=== PATIENT | female | born 1955 | race Caucasian/White ===

== ENCOUNTER 2020-07-12 16:55 | Emergency (ER) | payer OTHER, MEDICARE, SELFPAY ==
--- NOTE | ~2020-07-12 | US_ITS ---
EXAMINATION: US dialysis access duplex scan INDICATION: Left arm swelling after dialysis TECHNIQUE: Grayscale, color Doppler, and pulsed Doppler images left forearm are obtained. COMPARISON: None available FINDINGS: The dialysis fistula is patent. There is a 2.5 x 0.6 cm fluid collection lateral to the fis kristian which does not demonstrate internal blood flow. There is no definite continuity with the fistula . IMPRESSION: 1. Tiny fluid collection adjacent to the left arm fistula. Suspect small amount of edema or less like ly small hematoma given the acuity of symptoms. Reviewed, dictated and finalized at location A. IMPRESSION: 1. Tiny fluid collection adjacent to the left arm fistula. Suspect small amount of edema or less likely small hematoma given the acuity of symptoms.
[2020-07-12 16:52] VITALS: BP 155/61; PULSE 81; PULSE 82; RESP 12; TEMP 36.7; O2SAT 100
--- NOTE | 2020-07-12 17:10 | ED.GENADULT ---
HPI - General Adult General Chief complaint: Unspecified Stated complaint: left arm pain Time Seen by Provider: 07/12/20 17:10 History of Present Illness HPI narrative: Pain and edema in the left arm following dialysis today. She has a dialysis fistula in the left upper arm, which thye have been using for dialysis for the past several months. Today after dialysis she had severe pain and swelling of the left arm. She is very limited use of the arm due to previous stroke. I spoke with her cosmetics and toiletries salesperson. He says that this has been an ongoing issue. He believes that it is mostly dependent edema due to positioning and paralysis of the arm. He did recommend imaging to assess the shunt, and said that she should follow-up with a vascular surgeon for any ongoing issues. Related Data Allergies Allergy/AdvReac Type Severity Reaction Status Date / Time No Known Allergies Allergy Verified 07/12/20 17:06 Review of Systems Review of Systems: All systems reviewed & are unremarkable except as noted in HPI and below Constitutional: Constitutional: Reports no additional constitutional complaints Cardiovascular: Cardiovascular: Denies chest pain Respiratory: Respiratory: Denies dyspnea Gastrointestinal: Gastrointestinal: Reports no additional gastrointestinal complaints Genitourinary: Genitourinary: Reports no additional female genitourinary complaints Musculoskeletal: Musculoskeletal: Reports as per HPI Neurologic: Reports as per HPI [facility] Past Medical History Medical History (Updated 07/13/20 @ 11:21 by Erasmo Manriquez MD) ESRD on dialysis Type 2 diabetes mellitus with hyperglycemia Family History Family History (Updated 12/19/16 @ 09:15 by DOCTOR UNKNOWN) Other Cerebrovascular accident Depression Diabetes mellitus Family history of alcoholism Family history of glaucoma Family history of mental disorder Family history of obesity Hypertension Social History Social History Smoking status: Never smoker Alcohol intake: never Exam Const: General: cooperative, no acute distress and alert Nutritional Appearance: obese Orientation/consciousness: patient oriented x3 HENMT: Head: normal to inspection Neck: Neck: normal visual inspection Chest: Chest palpation & inspection: normal inspection of the chest Resp: Effort & Inspection: normal respiratory effort Auscultation: clear to auscultation bilaterally Cardio: Rate: regular rate Rhythm: regular rhythm Skin: General skin exam: normal color Rashes: no rashes Wounds: no wounds Neuro: General: patient oriented x3, CN's II-XI intact bilaterally and other (partial paralysis of the left side) Extrem: Other: moderate to severe edema of the LUE Course Vital Signs Vital signs: Vital Signs Temperature 36.7 C 07/12/20 16:52 Pulse Rate 82 07/12/20 16:52 Respiratory Rate 12 07/12/20 16:52 Blood Pressure 155/61 H 07/12/20 16:52 Pulse Oximetry 100 07/12/20 16:52 Temperature 36.7 C 07/12/20 16:52 Pulse Rate 77 07/12/20 20:30 Respiratory Rate 20 07/12/20 20:30 Blood Pressure 147/64 H 07/12/20 20:30 Pulse Oximetry 100 07/12/20 20:30 Medical Decision Making MDM Narrative Medical decision making narrative: Normal functional shunt on US. Small fluid collection with no evidence that it is contiguous with intravascular space. Differential Diagnosis Differential Diagnosis: Shunt stenosis, hematoma, dependent edema, other Medical Records Medical records reviewed: Yes I reviewed the external patient's medical records. Vital Signs Vital Signs: Vital Signs Temperature 36.7 C 07/12/20 16:52 Pulse Rate 82 07/12/20 16:52 Respiratory Rate 12 07/12/20 16:52 Blood Pressure 155/61 H 07/12/20 16:52 Pulse Oximetry 100 07/12/20 16:52 Temperature 36.7 C 07/12/20 16:52 Pulse Rate 77 07/12/20 20:30 Respiratory Rate 20 07/12/20 20:30 Blood Pressure 147/64 H 07/12/20 20:30 Pulse Oximetry 100
[2020-07-12] MEDS: MORPHINE SULFATE (*CRX) 2 MG/ML INJ IV PUSH (17:29)
--- NOTE | 2020-07-12 17:40 | PC.NURSE ---
Pt called per pt's request.
[2020-07-12 19:16] VITALS: BP 145/55; PULSE 80; RESP 14; O2SAT 100
--- NOTE | 2020-07-12 19:20 | PC.NURSE ---
Went to give discharge instructions to pt, asked pt to call spouse. Pt asked that RN stay in room during phone call and stated my doesn't believe anything I say. Explained transportation need to due to pt not qualifying for an ambulance and stated there is no way she will be able to get into my pickup truck and denied any other way of using another vehicle. abruptly hung up.
--- NOTE | 2020-07-12 20:08 | PC.NURSE ---
Report to Paris at [facility]-discharge instructions gone over. Paris reports that patient is a total assist to move/transfer-[facility] lift is utilized at their facility for her. Call now placed for EMS transport
[2020-07-12 20:30] VITALS: BP 147/64; PULSE 77; RESP 20; O2SAT 100
== END 2020-07-12 20:50 | disposition home or self-care (01) ==
PROVIDERS: Emergency Provider Emergency Medicine; PCP Internal Medicine
DX: R60.0 Localized edema (principal); E11.22 Type 2 diabetes mellitus with diabetic chronic kidney disease; N18.6 End stage renal disease; Z99.2 Dependence on renal dialysis; I69.334 Monoplegia of upper limb following cerebral infarction affecting left non-dominant side
CPT/HCPCS: 93990; 96374; 99284; J2270

== ENCOUNTER 2020-07-23 03:45 | Emergency (ER) | payer OTHER, MEDICARE, SELFPAY ==
--- NOTE | ~2020-07-23 | XR_ITS ---
EXAMINATION: XR chest 1V portable DATE: 07/23/2020 04:55 INDICATION: Weakness post stroke TECHNIQUE: frontal view of the chest was obtained. COMPARISON: None FINDINGS: Large-bore dual-lumen right internal jugular central venous catheter with distal tip high right atriu m. Small bandlike opacity medial right lung base consistent with discoid atelectasis. No pulmonary ed caden, pleural effusion or pneumothorax. The cardiomediastinal silhouette is normal. IMPRESSION: 1. Mild right basilar atelectasis. Reviewed, dictated and finalized at location A.
--- NOTE | ~2020-07-23 | CT_ITS ---
EXAMINATION: CT brain wo con DATE: 07/23/2020 04:03 INDICATION: Facial weakness TECHNIQUE: Computed tomography (CT) of the head was performed without intravenous contrast. Sagittal and coronal reconstructions were performed. The mA was adjusted according to patient size. Iterative reconstruction technique was employed. The dose-length product was 605.33 mGy-cm. COMPARISON: None FINDINGS: No acute intracranial hemorrhage, acute infarction or abnormal extra axial fluid collection. Multiple small regions of encephalomalacia in the right cerebral hemisphere predominantly in the periventricu lar white matter and parafalcine right frontal lobe in the anterior cerebral artery vascular distribu tion. Additional small old infarcts in the right thalamus and right lentiform nucleus as well as in t he insula and anterior right temporal lobe. Vascular stenting along the right middle cerebral artery. Symmetric prominence of the sulci and ventricles consistent with mild to moderate age-appropriate di ffuse cerebral volume loss. Incidentally noted cavum septum pellucidum et vergae. No mass/mass effect . Changes of bilateral intraocular lens replacement. The orbits, paranasal sinuses and mastoid air ce lls are normal. Intracranial calcified cerebral atherosclerosis is noted. IMPRESSION: 1. No acute intracranial process. 2. Multiple small old infarcts right-sided infarcts in the frontal and temporal lobes, insula, thalam us and lentiform nucleus with change of prior stenting along the right middle cerebral artery. Reviewed, dictated and finalized at location A. IMPRESSION: 1. No acute intracranial process. 2. Multiple small old infarcts right-sided infarcts in the frontal and temporal lobes, insula, thalamus and lentiform nucleus with change of prior stenting al juanpablo the right middle cerebral artery.
[2020-07-23 03:40] VITALS: BP 144/91; PULSE 79; RESP 18; O2SAT 100
--- NOTE | 2020-07-23 04:10 | ECG_ITS ---
Measurements Intervals [place] Rate: 79 P: 65 WI: 190 QRS: 240 QRSD: 181 T: 54 QT: 494 QTc: 568 Interpretive Statements SINUS RHYTHM RIGHT AXIS DEVIATION RIGHT BUNDLE BRANCH BLOCK BASELINE ARTIFACT- I, II, III, AVR, AVL, AVF, V1-V6 ABNORMAL ECG Electronically Signed On 07-23-2020 8:58:09 CDT by Dez Díaz D.O.
[2020-07-23] MEDS: SODIUM CHLORIDE 0.9% IV 500 ML 250 ML (04:29)
[2020-07-23 04:35] LABS: Basophils Percent Auto 0.2 % (0.2-1.2); Eosinophils Absolute Auto 0.2 K/mm3 (0-0.3); Eosinophils Percent Auto 2.8 % (0-4.4); Hematocrit 37.9 % (37.0-47.0); Hemoglobin 11.7 g/dL (12.0-15.0); Immature Granulocyte Absolute 0.04 K/mm3 (0.00-0.031); Immature Granulocyte Percent A 0.7 % (0-0.5); Lymphocytes Absolute Auto 1.17 K/mm3 (0.9-3.2); Mean Corpuscular HGB Conc 30.9 g/dl (32-36); Mean Corpuscular Hemoglobin 30.2 pg (26-34); Mean Corpuscular Volume 97.9 fl (80-100); Mean Platelet Volume 10.1 fl (7.4-10.4); Monocytes Absolute Auto 0.8 K/mm3 (0.1-0.6); Neutrophils Percent Auto 64.3 % (45.5-73.1); Platelet Count Result 191 k/mm3 (150-375); Red Blood Count 3.87 M/mm3 (4.2-5.4); Red Cell Distribution Width 16.5 % (11.5-14.5); White Blood Count 6.2 K/mm3 (4.5-10.0)
[2020-07-23 04:46] LABS: Lactic Acid Reflex 1.3 mmol/L (0.7-2.1)
[2020-07-23 04:47] LABS: Alanine Aminotransferase 12 U/L (4-35); Alkaline Phosphatase 115 U/L (38-126); Anion Gap 2 mmol/L (8-16); Aspartate Amino Transferase 29 U/L (14-36); Bilirubin,Total 0.5 mg/dL (0.2-1.3); Blood Urea Nitrogen 23 mg/dL (7-17); Calcium 8.2 mg/dL (8.4-10.2); Carbon Dioxide 36 mmol/L (22-30); Chloride 95 mmol/L (98-107); Estimated Glomerular Filt Rate 22; Glucose 175 mg/dL (65-105); Potassium 3.9 mmol/L (3.4-5.0); Sodium 133 mmol/L (137-145)
--- NOTE | 2020-07-23 04:50 | ED.GENADULT ---
HPI - General Adult General Chief complaint: Altered Mental Status Stated complaint: facial weakness Time Seen by Provider: 07/23/20 04:10 History of Present Illness HPI narrative: Patient is 65-year-old female who presents the emergency department with chief complaint of feeling strange. Patient reports that she has history of multiple strokes in the past with her most recent being in the last few weeks. Patient reports that she today felt kind of lightheaded although she had dialysis on Friday and felt as though they pulled too much fluid off over and still feels dehydrated. The patient states that she felt a little bit of a mild facial droop but that subsequently has improved at this time. Patient denies chest pain denies shortness of breath. Related Data Allergies Allergy/AdvReac Type Severity Reaction Status Date / Time No Known Allergies Allergy Verified 07/12/20 17:06 Review of Systems Review of Systems: Narrative: A 10 system review of systems was completed on the patient and is negative except for what is stated in the HPI. Nursing and ancillary documentation was reviewed. [facility] Past Medical History Medical History ESRD on dialysis Type 2 diabetes mellitus with hyperglycemia Family History Family History Other Cerebrovascular accident Depression Diabetes mellitus Family history of alcoholism Family history of glaucoma Family history of mental disorder Family history of obesity Hypertension Social History Social History Smoking status: Never smoker Alcohol intake: never Exam Narrative: Exam Narrative: GENERAL: Well-appearing, well-nourished, and in no acute distress. HEAD: Normocephalic, atraumatic. EYES: PERRLA and EOMI. ENT: Nares clear, no rhinorrhea or epistaxis. Mucous membranes moist. NECK: Supple. CHEST: Clear to auscultation. No respiratory distress. HEART: Regular rate and rhythm. No murmur heard. Normal peripheral pulses. ABDOMEN: Soft, nontender, nondistended, normal active bowel sounds. EXTREMITIES: Normal range of motion. No edema. SKIN: Warm, dry, no rash. NEURO: No focal deficits. Alert and oriented x3. PSYCH: Normal mood and affect. Course Course Emergency Course: Patient has a absolute contraindications to TPA due to recent CVA and also recent endovascular procedure for CVA Vital Signs Vital signs: Vital Signs Pulse Rate 79 07/23/20 03:40 Respiratory Rate 18 07/23/20 03:40 Blood Pressure 144/91 H 07/23/20 03:40 Pulse Oximetry 100 07/23/20 03:40 Pulse Rate 73 07/23/20 07:20 Respiratory Rate 13 07/23/20 07:20 Blood Pressure 112/51 L 07/23/20 07:20 Pulse Oximetry 100 07/23/20 07:20 Medical Decision Making Vital Signs Vital Signs: Vital Signs Pulse Rate 79 07/23/20 03:40 Respiratory Rate 18 07/23/20 03:40 Blood Pressure 144/91 H 07/23/20 03:40 Pulse Oximetry 100 07/23/20 03:40 Pulse Rate 73 07/23/20 07:20 Respiratory Rate 13 07/23/20 07:20 Blood Pressure 112/51 L 07/23/20 07:20 Pulse Oximetry 100 07/23/20 07:20 Lab Data Result diagrams: 07/23/20 04:25 07/23/20 04:25 Labs: Lab Results 07/23/20 07/23/20 07/23/20 Range/Units 04:25 04:25 04:25 WBC 6.2 (4.5-10.0) K/mm3 RBC 3.87 L (4.2-5.4) M/mm3 Hgb 11.7 L (12.0-15.0) g/dL Hct 37.9 (37.0-47.0) % MCV 97.9 (80-100) fl MCH 30.2 (26-34) pg MCHC 30.9 L (32-36) g/dl RDW 16.5 H (11.5-14.5) % Plt Count 191 (150-375) k/mm3 MPV 10.1 (7.4-10.4) fl Immature Gran % (Auto) 0.7 H (0-0.5) % Neut % (Auto) 64.3 (45.5-73.1) % Lymph % (Auto) 19.0 (18.3-44.2) % [place] % (Auto) 13.0 H (2.6-8.5) % Eos % (Auto) 2.8 (0-4.4) % Baso % (Auto) 0.2 (0.2-1.2) % Lymph # (Auto)
[2020-07-23 05:11] LABS: Troponin I 0.033 ng/mL (0.000-0.034)
[2020-07-23] MEDS: ONDANSETRON INJ 4 MG/2 ML VIAL IV PUSH (05:46)
[2020-07-23 05:57] LABS: Add Urine Microscopic? YES; Appearance Urine Cloudy (Clear); Bacteria Urine Trace /hpf; Bilirubin Urine Negative (Negative); Blood Urine 1+ (Negative); Color Urine Yellow (Yellow); Glucose Urine UA 1+ mg/dL (Negative); Ketones Urine Negative (Negative); Leukocyte Esterase Ur 2+ LEU/UL (Negative); Mucus Urine Rare /lpf; Nitrate Urine Negative (Negative); Protein Urine 1+ mg/dL (Negative); Squamous Epithelial Cell Urine Occasional /hpf (Few); Urobilinogen Urine Negative mg/dL (<2.0); WBC Urine 16-20 /hpf
[2020-07-23] MEDS: ACETAMINOPHEN 500 MG TABLET 1000 MG PO (07:15)
[2020-07-23 07:20] VITALS: BP 112/51; PULSE 73; RESP 13; O2SAT 100
--- NOTE | 2020-07-23 07:25 | PC.NURSE ---
Report taken from Chery SCHROEDER, assumed care of pt at this time. Pt resting upright and alert on stretcher, VSS. EMS called for transport back to facility.
[2020-07-23 07:46] VITALS: BP 112/51; PULSE 72; RESP 24; O2SAT 100
== END 2020-07-23 07:57 | disposition home or self-care (01) ==
PROVIDERS: Emergency Provider Emergency Medicine; PCP Internal Medicine
DX: N39.0 Urinary tract infection, site not specified (principal); R53.1 Weakness; E11.22 Type 2 diabetes mellitus with diabetic chronic kidney disease; N18.6 End stage renal disease; Z99.2 Dependence on renal dialysis; Z86.73 Personal history of transient ischemic attack (TIA), and cerebral infarction without residual deficits
CPT/HCPCS: 36415; 70450; 71045; 80053; 81001; 83605; 84484; 85025; 87077; 87086; 87088; 87186; 93005; 96361; 96374; 99284; A9270; J2405; J7040

== ENCOUNTER 2021-01-22 19:47 | Emergency (ER) | payer OTHER, MEDICARE, SELFPAY ==
--- NOTE | ~2021-01-22 | XR_ITS ---
EXAMINATION: XR chest port-a-cath/central DATE: 01/23/2021 03:05 INDICATION: Central line placement. TECHNIQUE: A single frontal view of the chest was obtained. COMPARISON: Chest single view 07/23/2020 FINDINGS: The left lateral costophrenic angle is excluded. There is no pneumonia, pleural effusion, o r pneumothorax. The heart size is normal. A left internal jugular central venous catheter is seen wit h tip in the right atrium. There are surgical clips in right abdomen. IMPRESSION: 1. Central line tip in right atrium. Reviewed, dictated and finalized at location A.
[2021-01-22 19:52] VITALS: BP 146/51; PULSE 72; RESP 18; TEMP 36.2; O2SAT 99
[2021-01-22 22:08] VITALS: BP 122/48; PULSE 66; RESP 18; O2SAT 100
--- NOTE | 2021-01-22 22:22 | ED.GENADULT ---
HPI - General Adult General Chief complaint: Unspecified Stated complaint: BLEEDING FROM DIALYSIS FISTULA Time Seen by Provider: 01/22/21 21:50 Source: patient and RN notes reviewed History of Present Illness HPI narrative: Patient is a 65 y/o female sent from [place] for left arm AV shunt bleeding. She state that she had dialysis earlier today and bleeding has not stopped completely. She also has some pain to left arm. She has chronic left arm and leg weakness due to previous stroke. Related Data Allergies Allergy/AdvReac Type Severity Reaction Status Date / Time No Known Allergies Allergy Verified 07/12/20 17:06 Review of Systems Constitutional: Constitutional: Denies chills, Denies fever(s), Denies headache(s) and Denies weakness Eyes: Eyes: Denies blurry vision ENT: Denies headache(s) and Denies neck pain Cardiovascular: Cardiovascular: Denies chest pain and Denies dyspnea Respiratory: Respiratory: Denies cough and Denies dyspnea Gastrointestinal: Gastrointestinal: Denies abdominal pain, Denies diarrhea, Denies nausea and Denies vomiting Genitourinary: Genitourinary: Denies hematuria and Denies dysuria Musculoskeletal: Musculoskeletal: Denies back pain and Denies neck pain Integumentary/Breasts: Skin/Breast: Reports as per HPI and Reports other (bleeding from left arm) Neurologic: Denies headache(s), Reports focal weakness (left sided weakness) and Denies weakness PMFSH Past Medical History Medical History ESRD on dialysis Type 2 diabetes mellitus with hyperglycemia Family History Family History Other Cerebrovascular accident Depression Diabetes mellitus Family history of alcoholism Family history of glaucoma Family history of mental disorder Family history of obesity Hypertension Social History Social History Smoking status: Never smoker Alcohol intake: never Exam Const: General: no acute distress and well developed Orientation/consciousness: oriented to person, oriented to place, oriented to time and patient oriented x3 HENMT: Head: normocephalic Ears: external ears normal General nose exam: Normal external nose present Eyes: General: appearance normal, both eyes and all related structures Conjunctivae: conjunctivae normal Neck: Neck: normal visual inspection and full ROM Chest: Chest palpation & inspection: normal inspection of the chest and no tenderness Resp: Effort & Inspection: normal respiratory effort Auscultation: clear to auscultation bilaterally Cardio: Rate: regular rate Rhythm: regular rhythm GI: GI Palp: No abdominal tenderness and Yes Soft to palpation Skin: General skin exam: normal color, turgor normal and other (bleeding from left upper arm noted) Neuro: General: oriented to person, oriented to place, oriented to time and patient oriented x3 Cognition (Neuro): normal cognition Speech: normal speech Motor exam (neuro): Other motor observations present (left hemiparesis) Extrem: General: normal to inspection, no pedal edema and other (left arm contracted) Psych: Appearance: grossly normal Mental Status: mental status grossly normal Affect: normal affect Course Reevaluation(s) Reevaluation #1: Rechecked. Patient still has some bleeding from left arm Date: 01/23/21 Time: 00:30 Consultations Consultation #1: Discussed with Dr. Bobo (patient's manpower development specialist), who states that he or his partner will consult if patient is transferred to [facility] for admission. Date: 01/23/21 Time: 00:35 Consultation #2: Discussed with Dr. Brasher (vascular surgery) at [facility], who agrees to evaluated the patient in ED Date: 01/23/21 Time: 01:14 Consultation #3: Discussed with Dr. Jose (EDP) at [facility], who agrees to accept the patient for transfer. Date: 01/23/21 Time: 01:15 Vital Signs Vi
[2021-01-22 23:55] LABS: Basophils Percent Auto 0.1 % (0.2-1.2); Eosinophils Absolute Auto 0.5 K/mm3 (0-0.3); Eosinophils Percent Auto 6.5 % (0-4.4); Hematocrit 30.6 % (37.0-47.0); Hemoglobin 9.8 g/dL (12.0-15.0); Immature Granulocyte Absolute 0.04 K/mm3 (0.00-0.031); Immature Granulocyte Percent A 0.6 % (0-0.5); Lymphocytes Absolute Auto 1.47 K/mm3 (0.9-3.2); Lymphocytes Percent Auto 20.6 % (18.3-44.2); Mean Corpuscular Hemoglobin 31.1 pg (26-34); Mean Corpuscular Volume 97.1 fl (80-100); Mean Platelet Volume 9.3 fl (7.4-10.4); Monocytes Absolute Auto 0.6 K/mm3 (0.1-0.6); Monocytes Percent Auto 8.8 % (2.6-8.5); Neutrophils Absolute Auto 4.5 K/mm3 (1.3-6.7); Neutrophils Percent Auto 63.4 % (45.5-73.1); Platelet Count Result 232 k/mm3 (150-375); Red Blood Count 3.15 M/mm3 (4.2-5.4); Red Cell Distribution Width 14.2 % (11.5-14.5); White Blood Count 7.1 K/mm3 (4.5-10.0)
[2021-01-23 00:06] LABS: INR 1.7; Prothrombin Time 19.6 Seconds (11.1-14.7)
[2021-01-23 00:07] LABS: Partial Thromboplastin Time 37.5 SECONDS (22.3-36.8)
[2021-01-23 00:16] LABS: Anion Gap 6 mmol/L (8-16); Blood Urea Nitrogen 31 mg/dL (7-17); Calcium 8.4 mg/dL (8.4-10.2); Carbon Dioxide 29 mmol/L (22-30); Chloride 95 mmol/L (98-107); Estimated Glomerular Filt Rate 18; Glucose 129 mg/dL (65-110); Potassium 4.4 mmol/L (3.4-5.0); Sodium 130 mmol/L (137-145)
[2021-01-23 00:20] VITALS: BP 122/68; PULSE 78; RESP 18; O2SAT 99
[2021-01-23] MEDS: HYDROcodone/acetaminophen (*CRX) 5-325 MG TABLET 1 TAB PO (01:03)
[2021-01-23 02:59] VITALS: BP 126/78; PULSE 78; RESP 18; O2SAT 99
--- NOTE | 2021-01-23 04:03 | PC.NURSE ---
nurse to nurse report given to ALEXANDRE Soria at [facility]
[2021-01-23 04:10] LABS: EDCOVIDSCREEN Negative (Negative)
== END 2021-01-23 04:54 | disposition short-term general hospital (02) ==
PROVIDERS: Emergency Provider Emergency Medicine; PCP Internal Medicine
DX: T82.838A Hemorrhage due to vascular prosthetic devices, implants and grafts, initial encounter (principal); E11.22 Type 2 diabetes mellitus with diabetic chronic kidney disease; N18.6 End stage renal disease; Z99.2 Dependence on renal dialysis; Z20.822 Contact with and (suspected) exposure to COVID-19
CPT/HCPCS: 36415; 36556; 80048; 85025; 85610; 85730; 87426; 99285; A9270; C1751; C9803

== ENCOUNTER 2021-02-05 13:58 | Emergency (ER) | payer OTHER, MEDICARE, SELFPAY ==
[2021-02-05] VITALS (41 sets, daily range): BP systolic 95–141; BP diastolic 36–73; PULSE 74–82; RESP 9–23; TEMP 36.6; O2SAT 93–100
--- NOTE | ~2021-02-05 | XR_ITS ---
EXAMINATION: XR hip BI 2V w AP pelvis DATE: 02/05/2021 16:14 INDICATION: Pain after fall TECHNIQUE: AP view of the pelvis and two views of each hip were obtained. COMPARISON: None. FINDINGS: Bone alignment is normal. There is no fracture. There is moderate osteoarthritis of the hip s. Calcified atherosclerosis is noted. An endovascular stent is noted in the right thigh. IMPRESSION: 1. No acute osseous abnormality. Reviewed, dictated and finalized at location B.
--- NOTE | ~2021-02-05 | CT_ITS ---
EXAMINATION: CT cervical spine wo con DATE: 02/05/2021 15:51 INDICATION: Head injury TECHNIQUE: Computed tomography (CT) of the cervical spine was performed without intravenous contrast. The dose-length product (DLP) was 464.36 mGy-cm. Automated exposure control and iterative reconstruc tion technique were employed. COMPARISON: None FINDINGS: There is no fracture, dislocation, or subluxation. The vertebral body heights are maintaine d. There is severe loss of intervertebral disc space height at C5-6 and moderate loss of disc space h eight at C4-5. The odontoid is intact. The prevertebral soft tissues are normal. There is mild multil evel facet and uncovertebral joint osteoarthritis. There is a 1.1 cm left supraclavicular lymph node. IMPRESSION: 1. Moderate cervical spondylosis without acute findings. 2. Enlarged left supraclavicular lymph node. Nonemergent workup is recommended. Reviewed, dictated and finalized at location B.
--- NOTE | ~2021-02-05 | CT_ITS ---
EXAMINATION: CT brain wo con INDICATION: Head injury COMPARISON: 07/23/2020 TECHNIQUE: Standard unenhanced head CT. The dose-length product (DLP) was 605.33 mGy-cm. The mA was a djusted according to patient size. Iterative reconstruction technique was employed. FINDINGS: There is no acute intraparenchymal hemorrhage. No evidence of mass lesion. No evidence of a cute infarction. Multiple right-sided infarcts are again noted. There is mild periventricular and sub cortical hypodensity probably related to small vessel ischemic disease. A stent is noted in the right middle cerebral artery. There is mild prominence of the sulci and ventricles related to cerebral atr ophy. Intracranial calcified cerebral atherosclerosis is noted. There are no extra-axial collections. There is no mass effect or midline shift. Changes in the globes are likely from ocular lens surgery. The visualized sinuses and mastoid air cells are well aerated. IMPRESSION: 1. Areas of prior infarction without acute intracranial abnormality. 2. Age related findings. Reviewed, dictated and finalized at location B.
--- NOTE | ~2021-02-05 | XR_ITS ---
XR hand RT min 3V DATE: 02/05/2021 18:08 INDICATION: Posterior laceration, second-fifth metacarpal region TECHNIQUE: 4 views COMPARISON: None FINDINGS: Diffuse osteopenia. There is a plate and screws along the distal radius. There is polyarticular osteoarthritis involving particularly the radiocarpal, first carpometacarpal, first metacarpophalangeal and multiple interphal angeal joints. No radiopaque foreign body is detected. IMPRESSION: Postoperative change of the distal radius Osteopenia Polyarticular osteoarthritis No fracture or dislocation Reviewed, dictated and finalized at location A.
--- NOTE | ~2021-02-05 | XR_ITS ---
EXAMINATION: XR shoulder RT min 2V INDICATION: Right shoulder pain TECHNIQUE: Three views of the right shoulder are submitted. COMPARISON: 07/23/2020 FINDINGS: Normal alignment. No fracture. There is moderate osteoarthritis of the acromioclavicular an d glenohumeral joints. Soft tissues are unremarkable. IMPRESSION: 1. No acute osseous abnormality. Reviewed, dictated and finalized at location B.
--- NOTE | ~2021-02-05 | XR_ITS ---
EXAMINATION: XR shoulder LT min 2V INDICATION: Left shoulder pain TECHNIQUE: Two views of the left shoulder are submitted. COMPARISON: None FINDINGS: No definite fracture, dislocation, or subluxation is identified on this limited two view st udy. An endovascular stent is noted in the proximal left arm. IMPRESSION: 1. No definite acute osseous findings, limited examination. Reviewed, dictated and finalized at location B.
--- NOTE | 2021-02-05 15:00 | PC.NURSE ---
Pt very difficult IV/lab stick, unable to use LUE due to fistula. Typically requires US guided IV placement and lab draw. Attempted x1, no other vasculature visible.
--- NOTE | 2021-02-05 15:26 | ED.FALL ---
HPI - Fall General Chief Complaint: Fall Stated Complaint: fall, hit head Time Seen by Provider: 02/05/21 15:02 Source: patient and RN notes reviewed Mode of arrival: EMS Limitations: no limitations History of Present Illness HPI Narrative: This is a 65 year old female with history of CVA with left side deficits, ESRD on dialysis who presents for evaluation of head injury s/p fall. Patient states she just returned from dialysis . She was trying to get into bed when she fell backwards hitting her head. She is unsure of LOC, but she is complaining of a headache. She also reports right hand pain, left shoulder pain. She reports right shoulder pain but she is pointing to her left shoulder. She also reports right groin pain that has been present for several months due to surgery. She has wound to right hand that has been dressed. Patient takes Eliquis. Related Data Allergies Allergy/AdvReac Type Severity Reaction Status Date / Time No Known Allergies Allergy Verified 07/12/20 17:06 Review of Systems Review of Systems: All systems reviewed & are unremarkable except as noted in HPI and below Constitutional: Constitutional: Denies chills and Denies fever(s) Cardiovascular: Cardiovascular: Denies chest pain Respiratory: Respiratory: Denies cough and Denies dyspnea Gastrointestinal: Gastrointestinal: Denies abdominal pain, Denies nausea and Denies vomiting Musculoskeletal: Musculoskeletal: Denies back pain Neurologic: Reports headache(s) [facility] Past Medical History Medical History (Updated 02/05/21 @ 20:08 by Candi Godoy MD) ESRD on dialysis Type 2 diabetes mellitus with hyperglycemia Surgical History Surgical History (Updated 02/06/21 @ 00:22 by Candi Godoy MD) H/O: hysterectomy History of cholecystectomy Family History Family History Other Cerebrovascular accident Depression Diabetes mellitus Family history of alcoholism Family history of glaucoma Family history of mental disorder Family history of obesity Hypertension Social History Social History Smoking status: Never smoker Alcohol intake: never Exam Const: General: no acute distress and alert Orientation/consciousness: patient oriented x3 HENMT: Head: normocephalic and atraumatic Face and sinus: face symmetric Mouth: Yes Normal oral and palatal mucosa present, Yes lip normal, Yes oropharynx normal and Yes moist mucous membranes Throat: tonsils normal and uvula midline Eyes: EOM: EOMs intact bilaterally Neck: Other: ecchymosis to right neck. PAtient reports from CVL attempt Chest: Chest palpation & inspection: normal inspection of the chest Resp: Effort & Inspection: normal respiratory effort and no retractions Auscultation: clear to auscultation bilaterally Cardio: Rate: regular rate Rhythm: regular rhythm Heart sounds: no murmurs GI: GI Palp: Yes Soft to palpation, No Tenderness to palpation present (GI) and No Guarding due to palpation present (GI) Auscultation: normal bowel sounds Skin: Other: right shoulder ecchymosis, no hip and back ecchymosis; healed scar to left groin to thigh, no erythema or swelling, Neuro: General: patient oriented x3 Other: left arm contracture and left side paralysis Extrem: General: edema Psych: Mental Status: mental status grossly normal Affect: normal affect Course Reevaluation(s) Reevaluation #1: Patient has not been found to have acute fractures. She has chronic anemia . BP 135/45 (73). Patient will be discharged back to facility Date: 02/05/21 Time: 20:05 Vital Signs Vital signs: Vital Signs Temperature 97.8 F 02/05/21 14:02 Pulse Rate 82 02/05/21 14:02 Respiratory Rate 15 02/05/21 14:02 Blood Pressure 100/36 L 02/05/21 14:02 Pulse Oximetry 97 02/05/21 14:02 Temperature 97.8 F 02/05/21 14:02 Pulse
[2021-02-05] MEDS: MIDODRINE HCL 10 MG TABLET PO (16:13)
--- NOTE | 2021-02-05 16:20 | PC.NURSE ---
Tech unable to obtain labs. RN at bedside attempting IV placement via US.
--- NOTE | 2021-02-05 17:32 | PC.NURSE ---
First RN unable to obtain IV/labs with US. Second RN successful with ultrasound. Labs sent.
[2021-02-05 17:49] LABS: Basophils Percent Auto 0.3 % (0.2-1.2); Eosinophils Absolute Auto 0.4 K/mm3 (0-0.3); Eosinophils Percent Auto 2.3 % (0-4.4); Hematocrit 28.5 % (37.0-47.0); Immature Granulocyte Percent A 3.8 % (0-0.5); Lymphocytes Absolute Auto 1.46 K/mm3 (0.9-3.2); Lymphocytes Percent Auto 9.3 % (18.3-44.2); Mean Corpuscular HGB Conc 31.6 g/dl (32-36); Mean Corpuscular Volume 101.4 fl (80-100); Mean Platelet Volume 9.9 fl (7.4-10.4); Monocytes Percent Auto 6.1 % (2.6-8.5); Neutrophils Absolute Auto 12.3 K/mm3 (1.3-6.7); Neutrophils Percent Auto 78.2 % (45.5-73.1); Platelet Count Result 185 k/mm3 (150-375); Red Blood Count 2.81 M/mm3 (4.2-5.4); Red Cell Distribution Width 15.9 % (11.5-14.5); White Blood Count 15.7 K/mm3 (4.5-10.0)
[2021-02-05 17:54] LABS: INR 1.7; Partial Thromboplastin Time 40.1 SECONDS (22.3-36.8); Prothrombin Time 19.8 Seconds (11.1-14.7)
[2021-02-05 18:32] LABS: Alanine Aminotransferase 17 U/L (4-35); Alkaline Phosphatase 220 U/L (38-126); Anion Gap 5 mmol/L (8-16); Aspartate Amino Transferase 42 U/L (14-36); Bilirubin,Total 0.8 mg/dL (0.2-1.3); Blood Urea Nitrogen 26 mg/dL (7-17); Calcium 8.4 mg/dL (8.4-10.2); Carbon Dioxide 34 mmol/L (22-30); Chloride 93 mmol/L (98-107); Estimated Glomerular Filt Rate 24; Glucose 190 mg/dL (65-110); Potassium 4.4 mmol/L (3.4-5.0); Sodium 132 mmol/L (137-145)
[2021-02-05] MEDS: oxyCODONE HCL (*CRX) 5 MG TAB IR 10 MG PO (20:19)
--- NOTE | 2021-02-05 20:22 | PC.NURSE ---
Pt given pain medication, sandwich, and diet soda with MD approval. Pt A&Ox4, joking with staff, plan to discharge back to facility.
--- NOTE | 2021-02-05 21:05 | PC.NURSE ---
Pt offered the ordered zofran, denies need for it at this time. Repositioned in bed for comfort. Updated waiting ambulance for transfer back to facility.
--- NOTE | 2021-02-05 23:22 | PC.NURSE ---
@[phone] called [facility] to request transport. ETA [phone] @[phone] called [facility] for ETA update. ETA [phone]
--- NOTE | 2021-02-05 23:38 | PC.NURSE ---
@[phone] called [facility] to request transport. declined @[phone] called [facility] to request transport. dispatch is checking with the security site supervisor and will call back.
--- NOTE | 2021-02-06 00:48 | PC.NURSE ---
called [facility] to request transport. not available called [facility] for ETA update. ETA 20 minutes
--- NOTE | 2021-02-06 01:13 | PC.NURSE ---
[facility] here.
[2021-02-06 01:22] VITALS: PULSE 71; RESP 18
== END 2021-02-06 01:24 ==
PROVIDERS: Emergency Provider General Practice; PCP Internal Medicine
DX: S40.011A Contusion of right shoulder, initial encounter (principal); S61.401A Unspecified open wound of right hand, initial encounter; N18.6 End stage renal disease; Z99.2 Dependence on renal dialysis; E11.22 Type 2 diabetes mellitus with diabetic chronic kidney disease; I69.90 Unspecified sequelae of unspecified cerebrovascular disease; M47.812 Spondylosis without myelopathy or radiculopathy, cervical region; M85.841 Other specified disorders of bone density and structure, right hand; M19.041 Primary osteoarthritis, right hand; M18.9 Osteoarthritis of first carpometacarpal joint, unspecified
CPT/HCPCS: 36415; 70450; 72125; 73030; 73130; 73521; 80053; 85025; 85610; 85730; 96374; 99284; A9270; J0131

== ENCOUNTER 2021-02-16 10:16 | Emergency (ER) | payer OTHER, MEDICARE, SELFPAY ==
--- NOTE | ~2021-02-16 | XR_ITS ---
EXAMINATION: XR elbow LT min 3V DATE: 02/16/2021 11:39 INDICATION: Left elbow injury. TECHNIQUE: 3 views of left elbow were obtained. COMPARISON: None. FINDINGS: Bone alignment is normal. No fracture. There is mild elbow joint osteoarthritis. No elbow j oint effusion. IMPRESSION: 1. Mild elbow joint osteoarthritis. Reviewed, dictated and finalized at location A. DYE HAND
--- NOTE | ~2021-02-16 | CT_ITS ---
EXAMINATION:CT diagnostic chest wo con DATE: 02/16/2021 11:20 INDICATION: Chest injury. Chest pain. TECHNIQUE: Computed tomography (CT) of the chest was performed without intravenous contrast. Automate d exposure control and iterative reconstruction technique were employed. The dose-length product (DLP ) was 489.43 mGy-cm. COMPARISON: None. FINDINGS: The lungs demonstrate mild atelectasis. A calcified right middle lobe nodule is consistent with old granulomatous disease. There is smooth septal thickening in the lungs, consistent with mild pulmonary edema. There are small pleural effusions. Cardiomegaly is noted. There are coronary artery calcifications. No pericardial effusion. The central pulmonary arteries are enlarged, consistent with pulmonary arterial hypertension. There are changes of cholecystectomy. There is a 15 mm mass of fat in left kidney, consistent with an angiomyolipoma. There are fracture deformities of the anterior lef t third-fifth ribs. There is severe cervical spondylosis and mild thoracic spondylosis. Partially vis ualized is a chronic burst fracture of L1. IMPRESSION: 1. Age-indeterminant fracture deformities of the left third-fifth ribs. 2. Mild pulmonary edema. 3. Small pleural effusions. 4. Cardiomegaly. Reviewed, dictated and finalized at location A. AND DIE MAKER TECHNICIAN
--- NOTE | ~2021-02-16 | XR_ITS ---
EXAMINATION: XR humerus LT DATE: 02/16/2021 11:39 INDICATION: Left upper arm injury. TECHNIQUE: 2 views of left humerus on 4 radiograph were obtained. COMPARISON: Chest CT 02/16/2021 FINDINGS: Bone alignment is normal. No fracture. There is mild osteoarthritis of glenohumeral joint a nd acromioclavicular joint. There is a vascular stent in left axilla. IMPRESSION: 1. No fracture. Reviewed, dictated and finalized at location A. BLANKING PRESS ADJUSTER IMPRESSION: 1. No fracture.
[2021-02-16 10:20] VITALS: BP 138/58; PULSE 74; RESP 18; TEMP 37.1; O2SAT 100
--- NOTE | 2021-02-16 11:01 | ED.FALL ---
HPI - Fall General Chief Complaint: Fall Stated Complaint: hip pain Time Seen by Provider: 02/16/21 10:45 Source: patient and EMS Mode of arrival: EMS Limitations: no limitations History of Present Illness HPI Narrative: Patient had a fall 2 weeks ago, came to our emergency room with negative work-up. Patient is telling me that she still having pain at the left upper extremity, left hip and left ribs. [facility]. Patient denies any increase in the level of pain but is not getting better Related Data Allergies Allergy/AdvReac Type Severity Reaction Status Date / Time No Known Allergies Allergy Verified 07/12/20 17:06 Review of Systems Review of Systems: CONSTITUTIONAL: Denies fever, chills, or sweats. EYES: Denies visual changes, redness, or discharge. ENT: Denies rhinorrhea, congestion, sore throat, or otalgia. CARDIOVASCULAR: Denies chest pain, palpitations, or edema. RESPIRATORY: Denies cough or dyspnea. GASTROINTESTINAL: Denies abdominal pain, nausea, vomiting, or diarrhea. GENITOURINARY: Denies dysuria or hematuria. SKIN: Denies rash or itching. MUSCULOSKELETAL: Denies back pain, joint pain, or myalgia. NEUROLOGIC: Denies headache, numbness, or weakness. PSYCHIATRIC: Denies anxiety or depression. PMFSH Past Medical History Medical History ESRD on dialysis Type 2 diabetes mellitus with hyperglycemia Surgical History Surgical History H/O: hysterectomy History of cholecystectomy Family History Family History Other Cerebrovascular accident Depression Diabetes mellitus Family history of alcoholism Family history of glaucoma Family history of mental disorder Family history of obesity Hypertension Social History Social History Smoking status: Never smoker Alcohol intake: never Exam Narrative: General appearance: Well-developed, well-nourished, does not look in pain or distress Skin: Scattered bruises including right upper extremity left upper extremity, left forehead Head: Normocephalic, nontraumatic Eyes: Clear conjunctiva ENT: Oropharynx normal, ears normal, nose normal Neck: Supple, nontender Chest and respiratory: Airway patent, no respiratory distress, no accessory muscle use Heart: Regular rate/rhythm Abdomen: Soft, nontender, no organomegaly, quiet bowel sounds Vascular: Normal peripheral pulses, normal capillary refill. Musculoskeletal: Severe tenderness of the left arm, left elbow, left chest with palpation Neurologic: Alert and oriented ?3, left hemiplegia Course Course Emergency Course: Stable Vital Signs Vital signs: Vital Signs Temperature 37.1 C 02/16/21 10:20 Pulse Rate 74 02/16/21 10:20 Respiratory Rate 18 02/16/21 10:20 Blood Pressure 138/58 L 02/16/21 10:20 Pulse Oximetry 100 02/16/21 10:20 Temperature 37.1 C 02/16/21 10:20 Pulse Rate 74 02/16/21 10:20 Respiratory Rate 18 02/16/21 10:20 Blood Pressure 138/58 L 02/16/21 10:20 Pulse Oximetry 100 02/16/21 10:20 MDM - Fall MDM Narrative Medical decision making narrative: Contusion, bruises is my concern. X-ray left elbow, left humerus, CT chest to rule out rib fracture ordered. Differential Diagnosis Differential diagnosis: Likely other (Contusion, bruises, possible refracture) Imaging Data Radiologist's impression: Impressions Chest CT 02/16/21 11:25 IMPRESSION: 1. Age-indeterminant fracture deformities of the left third-fifth ribs. 2. Mild pulmonary edema
--- NOTE | 2021-02-16 11:29 | PC.NURSE ---
Pt off floor in radiology
[2021-02-16] MEDS: HYDROcodone/acetaminophen (*CRX) 7.5-325 MG TABLET 1 TAB PO (11:56)
--- NOTE | 2021-02-16 13:07 | PC.NURSE ---
Pt resides at [facility] in [place]
--- NOTE | 2021-02-16 13:25 | PC.NURSE ---
[facility] called - [phone]. Facility does not have transport. Will call [facility] for transport. Pt is wheelchair bound. Have Update to ALEXANDRE Oshea.
--- NOTE | 2021-02-16 13:35 | PC.NURSE ---
called patient's at request of patient. Left message requesting callback.
--- NOTE | 2021-02-16 13:59 | PC.NURSE ---
Spoke with ALEXANDRE Oshea, at facility. DON requesting radiology reports to be sent with patient.
[2021-02-16] MEDS: ACETAMINOPHEN 325 MG TABLET 650 MG PO (14:34)
[2021-02-16 14:45] VITALS: BP 143/46; PULSE 79; RESP 18; TEMP 36.7; O2SAT 100
== END 2021-02-16 14:50 ==
PROVIDERS: Emergency Provider Emergency Medicine; PCP Internal Medicine
DX: S40.022A Contusion of left upper arm, initial encounter (principal); S20.219A Contusion of unspecified front wall of thorax, initial encounter; S80.12XA Contusion of left lower leg, initial encounter; E11.22 Type 2 diabetes mellitus with diabetic chronic kidney disease; N18.6 End stage renal disease; Z99.2 Dependence on renal dialysis; W19.XXXA Unspecified fall, initial encounter
CPT/HCPCS: 71250; 73060; 73080; 99284; A9270

== ENCOUNTER 2021-03-19 03:44 | Observation (INO) | payer OTHER, MEDICARE, SELFPAY ==
[2021-03-19] VITALS (7 sets, daily range): BP systolic 128–165; BP diastolic 60–76; PULSE 68–86; RESP 15–33; TEMP 36.4; O2SAT 96–98
--- NOTE | ~2021-03-19 | XR_ITS ---
EXAMINATION: XR chest 1V DATE: 03/19/2021 05:02 INDICATION: Transient alteration of awareness TECHNIQUE: frontal view of the chest was obtained. COMPARISON: Chest radiograph dated 01/23/2021 FINDINGS: Right upper extremity peripherally inserted central venous catheter (PICC) tip at the caudal superio r vena cava. Lungs remain clear with no focal airspace opacities, pulmonary edema, pleural effusion or pneumothora x. The cardiomediastinal silhouette is normal. Cholecystectomy clips in the right upper quadrant. The re are bridging osteophytes at multiple levels in the spine, consistent with diffuse idiopathic skele nessa hyperostosis (DISH). IMPRESSION: 1. No acute cardiopulmonary disease. Reviewed, dictated and finalized at location A. RY ROCK DRILLING MACHINE OPERATOR
--- NOTE | ~2021-03-19 | CT_ITS ---
EXAMINATION: CT brain wo con DATE: 03/19/2021 05:01 INDICATION: Altered mental status. TECHNIQUE: Computed tomography (CT) of the head was performed without intravenous contrast. The mA wa s adjusted according to patient size. Iterative reconstruction technique was employed. The dose-lengt h product was 605.33 mGy-cm. COMPARISON: Head CT 02/05/2021 FINDINGS: There is chronic encephalomalacia involving the right frontal and parietal lobes, right ins ashley, right basal ganglia, and anterior right temporal lobe. There are scattered areas of low attenuat ion in the left-sided cerebral white matter, consistent with chronic small vessel ischemic disease. T here is no intracranial hemorrhage, acute infarction, or abnormal intracranial mass lesion. Cavum sep [place] pellucidum and vergae are noted. The ventricles are normal in size for the degree of brain volume loss. There are likely changes of ocular lens replacement surgeries. The mastoid air cells are alexis l. The paranasal sinuses are clear. There are stents in right middle cerebral artery. IMPRESSION: 1. Areas of chronic encephalomalacia in the brain on the right in the distribution of the right middl e cerebral artery. 2. Mild nonspecific cerebral white matter disease, which likely represents chronic small vessel ische tha disease. Reviewed, dictated and finalized at location A. M TESTER IMPRESSION: 1. Areas of chronic encephalomalacia in the brain on the right in the distribut ion of the right middle cerebral artery. 2. Mild nonspecific cerebral white matter disease, which likely represents network intelligence analyst cynthia small vessel ischemic disease.
--- NOTE | 2021-03-19 03:57 | ECG_ITS ---
Measurements Intervals [place] Rate: 80 P: 57 TX: 199 QRS: 261 QRSD: 177 T: 40 QT: 479 QTc: 553 Interpretive Statements SINUS RHYTHM RIGHT AXIS DEVIATION RIGHT BUNDLE BRANCH BLOCK INFERIOR INFARCT, AGE INDETERMINATE BASELINE ARTIFACT- V3-V6 ABNORMAL ECG Electronically Signed On 03-19-2021 6:06:05 HOME HEALTH CLINICIAN by Dez Díaz D.O.
--- NOTE | 2021-03-19 04:30 | ED.GENADULT ---
HPI - General Adult General Chief complaint: Altered Mental Status Stated complaint: DIFFICULTY BREATHING/LETHARGIC (2MG NARCAN) Time Seen by Provider: 03/19/21 04:11 History of Present Illness HPI narrative: Patient is a 66-year-old female presents emerged department with chief complaint of altered mental status. Patient has history of a CVA also receives chronic pain medications and is a [facility] a [facility] apparently the penitentiary staff woke her up this morning and noticed that she was what they thought to be somewhat confused or drowsier than normal the nurse reported that she was concerned that the patient kept receiving oral pain medications and told EMS that she probably needed some Narcan the patient received Narcan but was breathing on her own and not showing signs of respiratory distress. When asked what her complaint was the patient states I feel like shit Related Data Allergies Allergy/AdvReac Type Severity Reaction Status Date / Time No Known Allergies Allergy Verified 03/19/21 04:39 Review of Systems Review of Systems: A 10 system review of systems was completed on the patient and is negative except for what is stated in the HPI. Nursing and ancillary documentation was reviewed. [facility] Past Medical History Medical History ESRD on dialysis Type 2 diabetes mellitus with hyperglycemia Surgical History Surgical History H/O: hysterectomy History of cholecystectomy Family History Family History Other Cerebrovascular accident Depression Diabetes mellitus Family history of alcoholism Family history of glaucoma Family history of mental disorder Family history of obesity Hypertension Social History Social History Smoking status: Never smoker Alcohol intake: never Exam Narrative: GENERAL: Patient in no acute distress resting without difficulty breathing HEAD: Normocephalic, atraumatic. EYES: PERRLA and EOMI. ENT: Nares clear, no rhinorrhea or epistaxis. Mucous membranes moist. NECK: Supple. CHEST: Clear to auscultation. No respiratory distress. HEART: Regular rate and rhythm. No murmur heard. Normal peripheral pulses. ABDOMEN: Soft, nontender, nondistended, normal active bowel sounds. EXTREMITIES: Normal range of motion. No edema. SKIN: Warm, dry, no rash. NEURO: No focal deficits. Alert and oriented to baseline. PSYCH: Normal mood and affect. Course Course Emergency Course: Chest x-ray shows no acute abnormalities Vital Signs Vital signs: Vital Signs Temperature 36.4 C 03/19/21 03:48 Pulse Rate 76 03/19/21 03:48 Respiratory Rate 33 H 03/19/21 03:48 Blood Pressure 139/60 03/19/21 03:48 Pulse Oximetry 96 03/19/21 03:48 Temperature 36.4 C 03/19/21 03:48 Pulse Rate 76 03/19/21 03:48 Respiratory Rate 26 H 03/19/21 04:39 Blood Pressure 139/60 03/19/21 03:48 Pulse Oximetry 97 03/19/21 04:39 Medical Decision Making Vital Signs Vital Signs: Vital Signs Temperature 36.4 C 03/19/21 03:48 Pulse Rate 76 03/19/21 03:48 Respiratory Rate 33 H 03/19/21 03:48 Blood Pressure 139/60 03/19/21 03:48 Pulse Oximetry 96 03/19/21 03:48 Temperature 36.4 C 03/19/21 03:48 Pulse Rate 76 03/19/21 03:48 Respiratory Rate 26 H 03/19/21 04:39 Blood Pressure 139/60 03/19/21 03:48 Pulse Oximetry 97 03/19/21 04:39 Lab Data Result diagrams: 03/19/21 04:49 03/19/21 04:49 Labs: Lab Results 03/19/21 03/19/21 03/19/21 Range/Units 04:49 04:49 04:49 WBC 13.1 H (4.5-10.0) K/mm3 RBC 2.93 L (4.2-5.4) M/mm3 Hgb 8.6 L (12.0-15.0) g/dL Hct 28.3 L (37.0-47.0) % MCV 96.6 (80-100) fl MCH 29.4 (26-34) pg MCHC 30.4 L
--- NOTE | 2021-03-19 04:45 | PCRCNOTE ---
Pt being uncooperative. Unable to obtain ABG. Dr. Salazar aware. OK to cancel ABG for now.
[2021-03-19 05:12] LABS: Basophils Percent Auto 0.2 % (0.2-1.2); Eosinophils Absolute Auto 0.2 K/mm3 (0-0.3); Eosinophils Percent Auto 1.4 % (0-4.4); Hematocrit 28.3 % (37.0-47.0); Hemoglobin 8.6 g/dL (12.0-15.0); Immature Granulocyte Percent A 1.5 % (0-0.5); Lymphocytes Absolute Auto 0.86 K/mm3 (0.9-3.2); Lymphocytes Percent Auto 6.5 % (18.3-44.2); Mean Corpuscular HGB Conc 30.4 g/dl (32-36); Mean Corpuscular Hemoglobin 29.4 pg (26-34); Mean Corpuscular Volume 96.6 fl (80-100); Mean Platelet Volume 9.6 fl (7.4-10.4); Monocytes Absolute Auto 0.4 K/mm3 (0.1-0.6); Neutrophils Absolute Auto 11.5 K/mm3 (1.3-6.7); Neutrophils Percent Auto 87.4 % (45.5-73.1); Platelet Count Result 291 k/mm3 (150-375); Red Blood Count 2.93 M/mm3 (4.2-5.4); Red Cell Distribution Width 16.9 % (11.5-14.5); White Blood Count 13.1 K/mm3 (4.5-10.0)
[2021-03-19 05:22] LABS: INR 1.8; Prothrombin Time 20.5 Seconds (11.1-14.7)
[2021-03-19 05:23] LABS: Partial Thromboplastin Time 47.9 SECONDS (22.3-36.8)
[2021-03-19 05:26] LABS: Add Urine Microscopic? YES; Appearance Urine Cloudy (Clear); Bacteria Urine 3+ /hpf; Bilirubin Urine Negative (Negative); Blood Urine 3+ (Negative); Glucose Urine UA Negative (Negative); Ketones Urine Negative (Negative); Leukocyte Esterase Ur 3+ LEU/UL (Negative); Nitrate Urine Negative (Negative); Protein Urine 2+ mg/dL (Negative); RBC Urine >75 /hpf (0-2); Squamous Epithelial Cell Urine Moderate /hpf (Few); Urobilinogen Urine Negative mg/dL (<2.0); WBC Clumps Urine Present /HPF; WBC Urine >75 /hpf
[2021-03-19 05:27] LABS: Color Urine Amber (Yellow)
[2021-03-19 05:31] LABS: Lactic Acid Reflex 0.8 mmol/L (0.7-2.1)
[2021-03-19 05:49] LABS: Alanine Aminotransferase 12 U/L (4-35); Albumin Level 2.8 g/dL (3.5-5.1); Alkaline Phosphatase 121 U/L (38-126); Anion Gap 9 mmol/L (8-16); Aspartate Amino Transferase 42 U/L (14-36); Bilirubin,Total 0.6 mg/dL (0.2-1.3); Blood Urea Nitrogen 38 mg/dL (7-17); Calcium 7.9 mg/dL (8.4-10.2); Carbon Dioxide 24 mmol/L (22-30); Chloride 100 mmol/L (98-107); Estimated CRCL calculation 17 ml/min; Estimated Glomerular Filt Rate 14; Glucose 63 mg/dL (65-110); Potassium 4.3 mmol/L (3.4-5.0); Sodium 133 mmol/L (137-145)
[2021-03-19 05:54] LABS: Troponin I 0.024 ng/mL (0.000-0.034)
[2021-03-19] MEDS: SODIUM CHLORIDE 0.9% IV 1,000 ML 999 ML IV CONT (06:23)
[2021-03-19] MEDS: SODIUM CHLORIDE 0.9% IV 1,000 ML 125 ML IV CONT (09:35)
--- NOTE | 2021-03-19 10:46 | PC.NURSE ---
Unable to flush patient's PICC line. Placement of PICC line was verified with chest xray prior to this RNs arrival. Spoke to ALEXANDRE Bryant to assess PICC placement
--- NOTE | 2021-03-19 11:24 | PM.IMHP ---
H&P: HPI History of Present Illness Date/Time: 03/19/21 11:24 ED-HPI narrative: Patient is a 66-year-old female presents emerged department with chief complaint of altered mental status. Patient has history of a CVA also receives chronic pain medications and is a resident of a local long term apparently the long term staff woke her up this morning and noticed that she was what they thought to be somewhat confused or drowsier than normal the nurse reported that she was concerned that the patient kept receiving oral pain medications and told EMS that she probably needed some Narcan the patient received Narcan but was breathing on her own and not showing signs of respiratory distress. When asked what her complaint was the patient states I feel like shit Patient stats now feels much better, her last dialysis was on Friday and is scheduled to have one today, patient Scr and K is close to her baseline, will conitinue to monitor, her UA is suspicious for UTI and was given ceftriaxone, she is remains clinically stable. Patient admitted as an observation Chief Complaint: AMS Review of Systems Review of Systems: All systems reviewed & are unremarkable except as noted in HPI and below PMFSH Past Medical History Medical History (Updated 03/19/21 @ 12:28 by Gwendolyn Bernstein MD) ESRD on dialysis Type 2 diabetes mellitus with hyperglycemia Surgical History Surgical History H/O: hysterectomy History of cholecystectomy Family History Family History Other Cerebrovascular accident Depression Diabetes mellitus Family history of alcoholism Family history of glaucoma Family history of mental disorder Family history of obesity Hypertension Social History Social History Smoking status: Never smoker Alcohol intake: never Meds Home Medications and Allergies Home Medications Medication Instructions Recorded Confirmed Type hydrocodone-acetaminophen 1 tablet PO Q6H PRN #10 tablet 07/12/20 Rx cephalexin 500 mg PO Q8H 7 Days #21 cap 07/23/20 Rx Allergies Allergy/AdvReac Type Severity Reaction Status Date / Time No Known Allergies Allergy Verified 03/19/21 04:39 Vital Signs Vital Signs - 24 hr 03/19/21 03:48 03/19/21 04:39 03/19/21 06:24 Temperature 97.6 F Pulse Rate 76 68 Respiratory Rate 33 H 26 H 22 H Blood Pressure 139/60 140/62 Pulse Oximetry 96 97 97 03/19/21 07:18 03/19/21 09:06 03/19/21 10:37 Temperature Pulse Rate 86 85 82 Respiratory Rate 18 15 18 Blood Pressure 165/76 H 158/72 H 128/68 Pulse Oximetry 98 98 98 Exam Narrative: Morbidly obese Patient is comfortable, NAD HEENT: eyes are clear and none icteric LUNGS:CTA HEART: RR S1S2 ABD: distended Lower extremities: no edema SKIN: nonjaundiced Neuro: grossly intact. H&P: Results Labs Labs: Short CBC 03/19/21 Range/Units 04:49 WBC 13.1 H (4.5-10.0) K/mm3 Hgb 8.6 L (12.0-15.0) g/dL Hct 28.3 L (37.0-47.0) % Plt Count 291 D (150-375) k/mm3 BMP 03/19/21 04:49 Sodium 133 L Potassium 4.3 Chloride 100 Carbon Dioxide 24 BUN 38 H D Creatinine 3.20 H Glucose 63 L Calcium 7.9 L Cardiac Enzymes 03/19/21 Range/Units 04:49 Troponin I 0.024 (0.000-0.034) ng/mL Liver Function 03/19/21 Range/Units 04:49 Total Bilirubin 0.6 (0.2-1.3) mg/dL AST 42 H (14-36) U/L ALT 12 (4-35) U/L Alkaline Phosphatase 121 (38-126) U/L Albumin 2.8 L (3.5-5.1) g/dL Urine 03/19/21 Range/Units 04:49 Urine Color [place] (Yellow) Urine Appearance Cloudy H (Clear) Urine pH 6.0 (5.0-9.0) Ur Specific [place] 1.010 (1.001-1.035) Urine Protein 2+ H (Negative) mg/dL Urine Glucose (UA) Negative (Negative) mg/dL Assessment and Plan Assessment a
--- NOTE | 2021-03-19 11:28 | PM.DS ---
DS: Admitting Diagnosis Discharge Date 03/19/2021 Admitting Diagnosis AMS DS: Discharge Diagnosis Discharge Diagnosis (1) ESRD on dialysis: Code(s): N18.6 - End stage renal disease; Z99.2 - Dependence on renal dialysis Status: Acute Assessment and Plan: ED-HPI narrative: Patient is a 66-year-old female presents emerged department with chief complaint of altered mental status. Patient has history of a CVA also receives chronic pain medications and is a resident of a local fdc apparently the fdc staff woke her up this morning and noticed that she was what they thought to be somewhat confused or drowsier than normal the nurse reported that she was concerned that the patient kept receiving oral pain medications and told EMS that she probably needed some Narcan the patient received Narcan but was breathing on her own and not showing signs of respiratory distress. When asked what her complaint was the patient states I feel like shit Patient stats now feels much better, her last dialysis was on Friday and is scheduled to have one today, patient Scr and K is close to her baseline, will conitinue to monitor, her UA is suspicious for UTI and was given ceftriaxone, she is remains clinically stable. (2) Acute UTI: Code(s): N39.0 - Urinary tract infection, site not specified Status: Acute Assessment and Plan: patient was given ceftriaxone and patient is taking keflex will CPM DS: Summary Hospital Course Reason for hospitalization: ED-HPI narrative: Patient is a 66-year-old female presents emerged department with chief complaint of altered mental status. Patient has history of a CVA also receives chronic pain medications and is a resident of a local fdc apparently the fdc staff woke her up this morning and noticed that she was what they thought to be somewhat confused or drowsier than normal the nurse reported that she was concerned that the patient kept receiving oral pain medications and told EMS that she probably needed some Narcan the patient received Narcan but was breathing on her own and not showing signs of respiratory distress. When asked what her complaint was the patient states I feel like shit Patient stats now feels much better, her last dialysis was on Friday and is scheduled to have one today, patient Scr and K is close to her baseline, will conitinue to monitor, her UA is suspicious for UTI and was given ceftriaxone, she is remains clinically stable. Hospital Course: patient remains clinically stable, plan was to dialysis patient however her dialysis catheter is clogged and vascular nurse started to open it, also our Dialysis Center is not able available, dailysis nurse is not here today, will discharge the patient to outside facility for dialysis, patient remains clinically stable has no new complaints. Status at Discharge Functional status at discharge: uses cane/walker Overall status at discharge: patient is back to baseline Time Spent with Patient Time attestation: Total time spent providing and/or coordinating discharge services: Time spent: Greater than 30 minutes Exam Narrative: Morbidly obese Patient is comfortable, NAD HEENT: eyes are clear and none icteric LUNGS:CTA HEART: RR S1S2 ABD: distended Lower extremities: no edema SKIN: nonjaundiced Neuro: grossly intact. DS: Data Data Completed and Pending Labs on day of discharge: Labs from last 24 hours 03/19/21 03/19/21 03/19/21 04:49 04:49 04:49 WBC RBC Hgb Hct MCV MCH MCHC RDW Plt Count MPV Immature Gran % (Auto) Neut % (Auto) Lymph % (Auto) [place] % (Auto) Eos % (Auto) Baso % (Auto) Lymph # (Auto) [place] # (Auto) Eos # (Auto) Baso # (Auto) Abs Immat Gran (auto) Absolute Neuts (auto) Absolute Nucleated RBC Nucleated RBC % PT INR APTT Sodium 133 L Potassium 4.3 Chloride 100 Ca
[2021-03-19] MEDS: ALTEPLASE 2 MG VIAL (CATHFLO) IV PUSH (11:35)
--- NOTE | 2021-03-19 12:29 | PC.NURSE ---
Patient discharged from hospital. Patient is to receive dialysis today at [address] [facility] in [place]. Patient to be taken by ambulance to [facility] and back to nursing facility.
--- NOTE | 2021-03-19 12:42 | PC.NURSE ---
[facility] has arrived
--- NOTE | 2021-03-19 13:11 | PC.NURSE ---
PICC line flushed easily, good blood return following cathflo.
== END 2021-03-19 13:21 | disposition other institution (70) ==
LOC: ANHED 06:13 → ANH3MEDSUR 08:56
PROVIDERS: Admitting Provider Internal Medicine; Emergency Provider Emergency Medicine; PCP Internal Medicine; Visit Provider Internal Medicine
DX: N39.0 Urinary tract infection, site not specified (principal); N17.9 Acute kidney failure, unspecified; E11.22 Type 2 diabetes mellitus with diabetic chronic kidney disease; N18.6 End stage renal disease; R41.82 Altered mental status, unspecified; Z86.73 Personal history of transient ischemic attack (TIA), and cerebral infarction without residual deficits; Z99.2 Dependence on renal dialysis; E66.01 Morbid (severe) obesity due to excess calories; Z68.41 Body mass index [BMI] 40.0-44.9, adult; Z79.891 Long term (current) use of opiate analgesic
CPT/HCPCS: 36415; 70450; 71045; 80053; 81001; 83605; 84484; 85025; 85610; 85730; 87077; 87086; 87186; 93005; 96365; 99285; G0378; J0696; J2997; J7030

== ENCOUNTER 2021-06-12 15:38 | Observation (INO) | payer OTHER, MEDICARE, SELFPAY ==
[2021-06-12] VITALS (24 sets, daily range): BP systolic 59–125; BP diastolic 19–72; PULSE 68–73; RESP 11–21; TEMP 36.6–36.7; O2SAT 90–100; BMI 40.2
--- NOTE | ~2021-06-12 | XR_ITS ---
EXAMINATION: XR chest 1V portable EXAM DATE: 06/12/2021 16:05 INDICATION: Substernal chest pain. Dialysis. TECHNIQUE: Portable AP frontal chest x-ray was obtained. Comparison is made to prior examination from 03/19/2021. FINDINGS: There is cardiomegaly. No confluent consolidation, pneumothorax or pleural effusion suspect ed. There are bony degenerative changes. IMPRESSION: Cardiomegaly unchanged. Reviewed, dictated and finalized at location A. ECTION OFFICER IMPRESSION: Cardiomegaly unchanged.
--- NOTE | 2021-06-12 15:49 | ECG_ITS ---
Measurements Intervals [place] Rate: 68 P: 47 [place]: 191 QRS: 267 QRSD: 165 T: 50 QT: 479 QTc: 513 Interpretive Statements SINUS RHYTHM RIGHT AXIS DEVIATION [QRS AXIS > 100] RIGHT BUNDLE BRANCH BLOCK [120+ ms QRS DURATION, UPRIGHT V1, 40+ ms S IN I/aVL/V4/V5/V6] POSSIBLE ANTERIOR MYOCARDIAL INFARCTION , PROBABLY OLD [30 ms Q WAVE IN V3/V4, OR R < 0.2 mV IN V4] POSSIBLE INFERIOR MYOCARDIAL INFARCTION, AGE INDETERMINATE BASELINE ARTIFACT ABNORMAL ECG COMPARED TO ECG 03/19/2021 04:27:38 NO SIGNIFICANT CHANGES Electronically Signed On 06-12-2021 16:28:38 GLASS LAMINATING OPERATOR by Rome Keith M.D.
[2021-06-12 16:39] LABS: INR 1.8; Prothrombin Time 20.4 Seconds (11.1-14.7)
[2021-06-12 16:41] LABS: Alanine Aminotransferase 14 U/L (4-35); Albumin Level 2.2 g/dL (3.5-5.1); Alkaline Phosphatase 190 U/L (38-126); Anion Gap 0 mmol/L (8-16); Aspartate Amino Transferase 32 U/L (14-36); Bilirubin,Total 0.3 mg/dL (0.2-1.3); Blood Urea Nitrogen 19 mg/dL (7-17); Calcium 6.8 mg/dL (8.4-10.2); Carbon Dioxide 32 mmol/L (22-30); Chloride 98 mmol/L (98-107); Estimated Glomerular Filt Rate 32; Glucose 135 mg/dL (65-110); Lipase 15 U/L (23-300); Potassium 3.8 mmol/L (3.4-5.0); Sodium 130 mmol/L (137-145)
[2021-06-12 16:52] LABS: Troponin I 0.013 ng/mL (0.000-0.034)
[2021-06-12 16:59] LABS: Basophils Percent Auto 0.1 % (0.2-1.2); Eosinophils Absolute Auto 0.1 K/mm3 (0-0.3); Eosinophils Percent Auto 1.2 % (0-4.4); Hematocrit 29.1 % (37.0-47.0); Hemoglobin 8.2 g/dL (12.0-15.0); Immature Granulocyte Absolute 0.13 K/mm3 (0.00-0.031); Immature Granulocyte Percent A 1.1 % (0-0.5); Lymphocytes Absolute Auto 0.97 K/mm3 (0.9-3.2); Lymphocytes Percent Auto 8.3 % (18.3-44.2); Mean Corpuscular HGB Conc 28.2 g/dl (32-36); Mean Corpuscular Hemoglobin 25.9 pg (26-34); Mean Corpuscular Volume 91.8 fl (80-100); Mean Platelet Volume 9.1 fl (7.4-10.4); Monocytes Percent Auto 8.7 % (2.6-8.5); Neutrophils Absolute Auto 9.4 K/mm3 (1.3-6.7); Neutrophils Percent Auto 80.6 % (45.5-73.1); Platelet Count Result 269 k/mm3 (150-375); Red Blood Count 3.17 M/mm3 (4.2-5.4); Red Cell Distribution Width 19.2 % (11.5-14.5); White Blood Count 11.7 K/mm3 (4.5-10.0)
--- NOTE | 2021-06-12 17:02 | PC.NURSE ---
Dr. Loyola and Dr. Farias made aware of pt's low bp. Pt awaiting to be seen by erp.
[2021-06-12 17:11] LABS: Platelet Estimate Adequate (Adequate)
[2021-06-12 17:12] LABS: Anisocytosis 2+ (NORMAL); Hypochromasia 1+ (NORMAL)
--- NOTE | 2021-06-12 17:31 | ED.GENADULT ---
HPI - General Adult General Chief complaint: Chest Pain Stated complaint: substernal cp Time Seen by Provider: 06/12/21 17:01 Source: patient Mode of arrival: ambulatory Limitations: no limitations History of Present Illness HPI narrative: Patient is a 66-year-old female complain of chest pain, left chest, 7 out of 10, tightness, radiating to left upper extremity that started right after her dialysis. Patient states that her blood pressure is usually low right after dialysis. Patient denies any shortness of breath, abdominal pain, nausea, vomiting, diaphoresis, fever or chills. Patient is bedridden due to the severe stroke with left hemiparesis. Related Data Home Medications Medication Instructions Recorded Confirmed B [id number] acid-Zn tablet tablet PO 03/22/21 03/22/21 Saccharomyces boulardii 250 mg 250 mg PO BID 03/22/21 03/22/21 capsule acetaminophen 650 mg/20.3 mL oral 325 mg PO Q4H PRN 03/22/21 03/22/21 solution allopurinol 100 mg tablet 100 mg PO DAILY 03/22/21 03/22/21 alprazolam 0.25 mg tablet 0.25 mg PO BID 03/22/21 03/22/21 amiodarone 200 mg tablet 200 mg PO DAILY 03/22/21 03/22/21 apixaban 5 mg tablet 5 mg PO BID 03/22/21 03/22/21 ascorbic acid (vitamin C) 500 mg mg PO 03/22/21 03/22/21 capsule atorvastatin 40 mg tablet 40 mg PO DAILY 03/22/21 03/22/21 bimatoprost 0.03 % eye drops 1 drp EACH EYE DAILY 03/22/21 03/22/21 bisacodyl 10 mg rectal suppository 10 mg RECTAL DAILY PRN 03/22/21 03/22/21 bumetanide 1 mg tablet 1 mg PO BID 03/22/21 03/22/21 carvedilol 3.125 mg tablet 3.125 mg PO Q12H 03/22/21 03/22/21 clotrimazole 1 % topical cream 1 applic TOPICAL Q12H 03/22/21 03/22/21 gabapentin 100 mg capsule 100 mg PO QHS 03/22/21 03/22/21 insulin glargine 100 unit/mL (3 15 unit SUBCUT QAM 03/22/21 03/22/21 mL) subcutaneous pen insulin lispro 100 unit/mL 1 sliding scale dose SUBCUT 03/22/21 03/22/21 subcutaneous pen USEASDIRECTD magnesium citrate 150 ml PO ONCE 03/22/21 03/22/21 magnesium hydroxide 400 mg/5 mL 5 ml PO DAILY PRN 03/22/21 03/22/21 oral suspension midodrine 10 mg tablet 10 mg PO TID 03/22/21 03/22/21 mineral oil 118 ml RECTAL DAILY PRN 03/22/21 03/22/21 mirtazapine 7.5 mg tablet 7.5 mg PO QHS 03/22/21 03/22/21 oxycodone 10 mg tablet 10 mg PO Q4H PRN 03/22/21 03/22/21 pantoprazole 40 mg tablet,delayed 40 mg PO QAM 03/22/21 03/22/21 release senna-docusate sodium capsule cap PO 03/22/21 03/22/21 sodium chloride 0.9 % (flush) 10 ml IV DAILY 03/22/21 03/22/21 trazodone 50 mg tablet 25 mg PO QHS PRN 03/22/21 03/22/21 venlafaxine 150 mg 150 mg PO DAILY 03/22/21 03/22/21 capsule,extended release 24 hr Allergies Allergy/AdvReac Type Severity Reaction Status Date / Time No Known Allergies Allergy Verified 06/12/21 15:51 Review of Systems Review of Systems: All systems reviewed & are unremarkable except as noted in HPI and below Constitutional: Constitutional: Denies body ache(s), Denies chills, Denies excessive sweating, Denies fatigue, Denies fever(s), Denies headache(s), Denies lethargy, Denies malaise, Denies weakness and Denies weight loss Eyes: Eyes: Denies blurry vision, Denies change in vision and Denies loss of vision ENT: Denies dizziness, Denies ear discharge, Denies headache(s), Denies lip swelling, Denies epistaxis, Denies nasal congestion, Denies neck pain, Denies throat swelling and Denies tongue swelling Cardiovascular: Cardiovascular: Denies diaphoresis, Denies rapid heart rate, Denies edema, Denies irregular heart rhythm, Denies lightheadedness, Denies palpitations, Denies dyspnea and Denies dyspnea on exertion Respiratory: Respiratory: Denies chest congestion, Denies cough, Denies hemoptysis, Denies dyspnea and Denies dyspnea on exertion Gastrointestinal: Gastrointestinal: Denies abdominal pain, Denies melena, Denies hematochezia, Denies diarrhea, Denies nausea, Denies vomiting and Denies hematemesis Musculoskeletal: Musculoskeletal: Denies abnormal gait, Denies deformity
--- NOTE | 2021-06-12 17:42 | PC.NURSE ---
blood pressure taken manually due to low readings with cuff on leg. Taken bp on forearm and bp 127/55. MD made aware. Fluids held.
--- NOTE | 2021-06-12 17:51 | PC.NURSE ---
IV fluids held, due to dialysis. pt had 2.5 liter pulled today.
[2021-06-12] MEDS: HYDROcodone/acetaminophen (*CRX) 5-325 MG TABLET 1 TAB PO (18:11)
--- NOTE | 2021-06-12 19:27 | PC.NURSE ---
Assumed care of pt at this time. Pt alert and upright on stretcher. States pain in chest has resolved. Given meal tray. Pt updated on POC.
[2021-06-12 19:29] LABS: Troponin I 0.015 ng/mL (0.000-0.034)
--- NOTE | 2021-06-12 21:07 | ADMGEN ---
This patient, Chantel Suarez, was admitted to IMU Room 201-01 at approx 20:20 on 06/12. Patient/family oriented to hospital policies and general routines including ID bracelet, bed and alarms, visiting hours, pain management, procedures, bathroom and other care routines, personal items, smoking policy, room service/diet, and visiting hours. Information on how to activate the Rapid Response Team has been discussed. Patient/Family are encouraged to report perceived risks to care and to ask questions if they do not understand what they are told or what they should do.
[2021-06-12 21:55] LABS: Troponin I 0.015 ng/mL (0.000-0.034)
--- NOTE | 2021-06-12 22:43 | PM.IMHP ---
H&P: HPI History of Present Illness Date/Time: 06/12/21 22:43 Chief Complaint: Chest pain Narrative: 66-year-old female with past medical history of diabetes mellitus, hypertension, chronic pain and end-stage renal disease on hemodialysis who presented to the ER with substernal chest pain following dialysis. Source of information is patient report and past medical records. The patient reports that she started having substernal chest pain just after she finished dialysis. She typically has episodes of hypotension on dialysis days in receives midodrine prior to dialysis. She stated she had started to feel lightheaded disc prior to the onset of her chest pain. She did have a syncopal episode. Her chest pain lasted a few minutes and resolved without intervention. She reported that the pain is 7/10 in intensity in the ER and was tight in nature. She denied any associated shortness of breath, cough or congestion. The patient is a seemed to be a fair historian but states that early last stroke was 6 weeks ago when she was hospitalized here. However she was last hospitalized here in March and she is hospitalized at that time due to concern for confusion with narcotic use. Her last stroke was actually last summer and laughter with residual left-sided hemiparesis. She has a chronic indwelling Wilson catheter for what sounds like urinary retention. The patient does not appear to make that much urine. She reports that her catheter was changed about 3 weeks ago. She is alert and oriented x4 at the time of my evaluation. The patient did have multiple low blood pressure readings in the ER but blood pressure is improved when cuff adjusted in moved to the right forearm. Review of Systems Review of Systems: 12 systems were reviewed with pertinent positives and negatives per HPI. Except as documented in the HPI, all other systems were reviewed and are negative. FORMERLY [facility], [facility] Past Medical History Medical History (Updated 06/13/21 @ 03:24 by Leena Samano DO) Anxiety and depression Atrial fibrillation Chronic indwelling Wilson catheter Coronary artery disease CVA (cerebral vascular accident) 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 Complicated by post dialysis hypotension. Hemodialysis Friday Functional quadriplegia Due to CVA Glaucoma Gout Hyperlipidemia Insulin dependent diabetes mellitus Surgical History Surgical History (Updated 06/13/21 @ 03:14 by Leena Samano DO) AV fistula Left upper arm with recent dilation. H/O: hysterectomy History of cholecystectomy History of heart artery stent Family History Family History Other Cerebrovascular accident Depression Diabetes mellitus Family history of alcoholism Family history of glaucoma Family history of mental disorder Family history of obesity Hypertension Social History Social History (Updated 06/13/21 @ 03:18 by Leena Samano DO) Social History: [facility] She has been for over 30 years. She is a lifelong nonsmoker and does not drink alcohol. She is a retired respiratory therapist and retired in 2001. Code status: Full code Surrogate decision maker: Ramses () Smoking status: Never smoker Alcohol intake: never Substance use: never Gender identity (if verbalized by the patient): Female Spiritual care concerns: No Meds Home Medications and Allergies Home Medications Medication Instructions Recorded Confirmed Type hydrocodone-acetaminophen 1 tablet PO Q6H PRN #10 tablet 07/12/20 06/12/21 Rx cephalexin 500 mg PO Q8H 7 Days #21 cap 07/23/20 06/12/21 Rx acetaminophen 650 mg/20.3 mL oral 325 mg PO Q4H PRN 03/22/21 06/12/21 History solution allopurinol 1
[2021-06-13] VITALS (8 sets, daily range): BP systolic 112–129; BP diastolic 45–70; PULSE 65–74; RESP 20; TEMP 35.6–36.6; O2SAT 96–100; BMI 40.2
[2021-06-13] MEDS: oxyCODONE HCL (*CRX) 5 MG TAB IR 10 MG PO ×3 (07:50→18:07)
[2021-06-13 09:15] LABS: Glucose Point of Care 238 mg/dl (65-105)
[2021-06-13] MEDS: BUMETANIDE 1 MG TABLET PO ×2 (10:03→18:15)
[2021-06-13] MEDS: carvediloL 3.125 MG TABLET PO ×2 (10:03→20:25)
[2021-06-13] MEDS: AMIODARONE HCL 200 MG TABLET PO (10:04)
[2021-06-13] MEDS: PANTOPRAZOLE 40 MG TABLET PO (10:04)
[2021-06-13] MEDS: VENLAFAXINE HCL XR 75 MG CAP.ER.24H 150 MG PO (10:05)
[2021-06-13] MEDS: allopurinoL 100 MG TABLET PO (10:06)
[2021-06-13] MEDS: ATORVASTATIN 40 MG TABLET PO (10:07)
[2021-06-13] MEDS: INSULIN ASPART (*BKC) 100 UNITS/ML SUB-Q (10:11)
--- NOTE | 2021-06-13 11:19 | PCCCNOTE ---
On 06/13/21, the student, [Tanya Child], provided care and completed [employer] hospital documentation on this patient. I have reviewed the student's documentation and agree with the findings.
[2021-06-13] MEDS: APIXABAN 5 MG TABLET PO ×2 (12:03→20:25)
[2021-06-13] MEDS: SILVERGEL (ELTA) 45 ML 1 APPLIC TOPICAL (12:04)
[2021-06-13] MEDS: ALPRAZolam (*CRX) 0.25 MG TABLET PO ×2 (12:10→18:17)
[2021-06-13] MEDS: INSULIN GLARGINE (*BKC) 100 UNITS/ML 15 UNITS SUB-Q (12:11)
[2021-06-13 12:18] LABS: Glucose Point of Care 146 mg/dl (65-105)
--- NOTE | 2021-06-13 12:40 | WPDCN ---
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 this would benefit by surgical release. This would require intrinsic and long flexor release under general anesthesia. This is not emergent. Will ask wound center staff to try to provide absorptive tissue spacers if possible. We will need to address this problem surgically as an out patient. Pt dialysis T- Th- Sat. She requires a Celso lift and I will likely need to reevaluate her in the wound center in a week or so. HPI Data of Consult Date/Time: 06/13/21 12:40 Requesting Physician: Mara Millard MD Primary Care Provider: Surinder Mckeon, Consult Narrative Narrative: Chantel Suarez is a 66 year old female who is alert, pleasant and very informative. She has end-stage renal disease due to diabetes and dialyzes 3 times a week via an arterial venous fistula in the left arm. She was admitted with pain in the left chest and anterior shoulder area. She has a history of multiple strokes, the last being in the summer of 2020. She has left hemiplegia. I was consulted to see her about severe contractures of her left hand resulting in difficulties maintaining hygiene. 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 Chantel is able to extend her shoulder slightly. She says she can move her elbow with help. Her wrist and fingers do not move voluntarily. The wrist is in approximately 20? of extension and the metacarpophalangeal joints, proximal interphalangeal joints and the IP joints are all chronically flexed causing maceration in the palm particularly at the distal end of the ring finger. There is no cellulitis at this time. She complained a great deal of pain as I try to examine her fingers. She says the small finger is the most tender. The ring finger is the most buried into the palm. Efforts to maintain hygiene in the area have been helped by therapists. At the present time there is no absorptive material in her palm. Regarding the chest pain, she says the pain is in the anterior axilla area. I tried to palpate that area and she found it very uncomfortable. I did not feel any discrete masses, it seems the trapezium may be very tight. All movement of my hand in her axilla seemed to be very uncomfortable. She has no history of breast cancer or axillary surgery. She has no history of neck pain or stiffness that might be associated with radiculopathy. [facility] Past Medical History Medical History (Updated 06/13/21 @ 13:00 by Giovani Gould MD) Anxiety and depression Atrial fibrillation Chronic indwelling Wilson catheter Coronary artery disease CVA (cerebral vascular accident) 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 Complicated by post dialysis hypotension. Hemodialysis Friday Functional quadriplegia Due to CVA Glaucoma Gout Hyperlipidemia Insulin dependent diabetes mellitus Surgical History Surgical History (Updated 06/13/21 @ 03:14 by Leena Samano DO) AV fistula Left upper arm with recent dilation. H/O: hysterectomy History of cholecystectomy History of heart artery stent Family History Family History Other Cerebrovascular accident Depression Diabetes mellitus Family history of alcoholism Family history of glaucoma Family history of mental disorder Family history of obesity Hypertension Social History Social History (Updated 06/13/21 @ 03:18 by Leena Samano DO) Social History: Patient is leslie
--- NOTE | 2021-06-13 12:48 | PM.IMPN ---
Progress Note: A&P Assessment and Plan (1) Chest pain at rest: Code(s): R07.9 - Chest pain, unspecified Status: Acute (2) ESRD on dialysis: Code(s): N18.6 - End stage renal disease; Z99.2 - Dependence on renal dialysis Status: Acute (3) Syncope: Qualifiers: Syncope type: unspecified Qualified Code(s): R55 - Syncope and collapse Code(s): R55 - Syncope and collapse Status: Acute (4) Atrial fibrillation: Code(s): I48.91 - Unspecified atrial fibrillation Status: Inactive (5) Contracture, left hand: Code(s): M24.542 - Contracture, left hand Status: Acute (6) Left shoulder pain: Qualifiers: Chronicity: chronic Qualified Code(s): M25.512 - Pain in left shoulder; G89.29 - Other chronic pain Code(s): M25.512 - Pain in left shoulder Status: Chronic (7) Functional quadriplegia: Code(s): R53.2 - Functional quadriplegia Status: Inactive (8) Insulin dependent diabetes mellitus: Status: Inactive (9) DVT prophylaxis: Code(s): Z29.9 - Encounter for prophylactic measures, unspecified Status: Acute Additional Plan [place] the chest pain was related to demand ischemia from her low blood pressure. She had recent ischemic evaluation few months ago that was negative. Patient follow-up with her hcc coders for further evaluation per Cardiology. Will hold Bumex on dialysis days. PICC line in place. Unclear why this is still in place. She is not on IV antibiotics. She is unclear as well. Blood cultures have been collected per protocol but doubt that her low blood pressures from sepsis. Will remove PICC line. Will follow up on the blood culture results but okay for discharge. Plans for patient to follow-up Plastic surgery as an outpatient. Discussed with wound care. Okay for discharge at this time. Please see discharge care instructions. Subjective Date/time seen: 06/13/21 12:48 Interval history: 66yo female with ESRD, CAD and DM here for chest pain. Reji states she has low BP at dialysis at times and this is usually associated with chest pain. When asked why they sent her to the ED this time, she states it was due to the staff being 'scared'. She denies having any chest pain now. No nausea/vomiting. No fever or chills. No lightheadedness. SHe is up to a c chair and usally a Celso lift from the bed. She sees Dr Stahl, Cardiology with last stress test 3 months ago which was negative. She has chronic Wilson due to incontinence. She makes a small amount of urine but does not know when she has to void. She denies that she has a chronic Wilson for urine retention. Exam Narrative: AF 96.0 129/53 74 20 97% RA Gen - NARD sitting up in bed HEENT - lid lag noted. Chest - clear anteriorly. CV - RRR S1/S2. Tele showing no significant dysrhythmias Abd - soft, NT/ND, +BS - Wilson secured but no urine in the bag Ext - minimal pitting and nonpitting pedal edema. Thrill and bruit LUE. Neuro - Alert and appropriate. sleech is clear. thick left hemiplegia. Right UE/LE weakness. Inability to open left hand and causes pain. Psych - Nml mood and affect Skin - warm and dry. Left hand is not warm or erythematous. Objective Data Vital Signs Vital Signs: Vital Signs - 24 hr 06/12/21 15:44 06/12/21 15:52 06/12/21 15:53 Temperature 98.1 F Pulse Rate 71 73 69 Respiratory Rate 18 21 H 14 Blood Pressure 89/34 L 89/34 L Pulse Oximetry 99 100 100 06/12/21 15:54 06/12/21 16:00 06/12/21 16:02 Temperature Pulse Rate 69 69 69 Respiratory Rate 13 15 14 Blood Pressure 72/35 L Pulse Oximetry 99 100 97 06/12/21 16:15 06/12/21 16:17 06/12/21 16:41 Temperature Pulse Rate 69 68 69 Respiratory Rate 14 12 13 Blood Pressure 59/25 L Pulse Oximetry 99 100 98 06/12/21 16:50 06/12/21 17:08 06/12/21 17:13 Temperature Pulse Rate 72 71 Respiratory Rate 16 12 11 L Blood Pressure 61/26 L Pu
--- NOTE | 2021-06-13 15:10 | PM.DS ---
DS: Admitting Diagnosis Discharge Date 06/13/21 Admitting Diagnosis Chest pain DS: Discharge Diagnosis Discharge Diagnosis (1) Chest pain at rest: Code(s): R07.9 - Chest pain, unspecified Status: Acute (2) ESRD on dialysis: Code(s): N18.6 - End stage renal disease; Z99.2 - Dependence on renal dialysis Status: Acute (3) Syncope: Qualifiers: Syncope type: unspecified Qualified Code(s): R55 - Syncope and collapse Code(s): R55 - Syncope and collapse Status: Acute (4) Atrial fibrillation: Code(s): I48.91 - Unspecified atrial fibrillation Status: Inactive (5) Contracture, left hand: Code(s): M24.542 - Contracture, left hand Status: Acute (6) Left shoulder pain: Qualifiers: Chronicity: chronic Qualified Code(s): M25.512 - Pain in left shoulder; G89.29 - Other chronic pain Code(s): M25.512 - Pain in left shoulder Status: Chronic (7) Functional quadriplegia: Code(s): R53.2 - Functional quadriplegia Status: Inactive (8) Insulin dependent diabetes mellitus: Status: Inactive DS: Summary Hospital Course Reason for hospitalization: 66yo female with ESRD, CAD and DM here for chest pain. Please see H&P for details Hospital Course: Patient presents with complaints of left sided chest pain (10/14) described as tightness, radiating to left upper extremity that started right after her dialysis. Patient states that her blood pressure is usually low with dialysis and takes midodrine for this. She started to feel lightheaded just prior to the onset of her chest pain. The chest pain lasted few minutes and resolved its own. No shortness of breath. EMS was called and patient was brought to the emergency room for evaluation. In the emergency room, blood pressure was low at times but this improved when the cuff was adjusted and moved to the right forearm. She received aspirin, [place] and a 500 mL fluid bolus in the ED. CXR showed cardiomegaly which is unchanged but no other concerning findings. She does have right-sided PICC line in place. EKG showed normal sinus rhythm with right axis deviation, right bundle branch block, possibly old anterior ND. she also had findings for possible inferior ND but overall no change in EKG when compared to EKG from March 2021. White count slightly elevated at 11.7 K. She was anemic with a hemoglobin 8.2 but not significantly different from March. Sodium low at 130 but again no significant change. BUN 19 creatinine 1.6 but she is on dialysis. Troponin negative x3. LFTs within normal limits with exception of low protein and albumin. Calcium is low at 6.8 but corrected calcium was 8.2 given the low albumin of 2.2. Patient states that she follows with Dr. Stahl, cardiology. She states that she had a chemical stress test 3 months ago that was normal. Suspect patient had demand ischemic symptoms related to low blood pressure. Will hold Bumex on dialysis days. Blood cultures collected since she has a PICC line in place. PICC line removed. Patient was seen by wound care. Patient has multiple wounds mostly in the left side including left heel, left thigh, coccyx, left buttock. She also has severe flexion contraction of the left hand with fingers embedding into her palm. She was seen by Plastic surgery for this. The left hand was not felt to be infected but felt it needed to be cleaned better. Plan is for further evaluation as an outpatient which is being arranged through the wound care clinic. Discussed with the wound care nurse. Patient overall did well as a to be returned to the half-way on 06/13/2021. Status at Discharge Cognitive/behavioral status at discharge: Stable Time Spent with Patient Time attestation: Total time spent providing and/or coordinating discharge services: 38 minutes Time spent: Greater than 30 minutes Exam Narrative: AF 96.0 129/53 74 20 97% RA Gen
[2021-06-13 16:48] LABS: Glucose Point of Care 167 mg/dl (65-105)
[2021-06-13] MEDS: CENTRAL LINE FLUSH 10 ML IV PUSH ×2 (18:08→20:25)
[2021-06-13] MEDS: MIRTAZAPINE 7.5 MG TABLET PO (20:25)
[2021-06-13] MEDS: GABAPENTIN 100 MG CAPSULE PO (20:25)
--- NOTE | 2021-06-19 09:21 | PC.NURSE ---
Blood cx are negative. Dr. Meggan bhatia.
== END 2021-06-13 21:00 ==
LOC: ANHED 19:02 → ANHIMU 06-13 13:44
PROVIDERS: Emergency Medicine; Admitting Provider Hospitalist; Emergency Provider Emergency Medicine; PCP Internal Medicine; Visit Provider Internal Medicine
DX: R07.9 Chest pain, unspecified (principal); R55 Syncope and collapse; M24.542 Contracture, left hand; M25.512 Pain in left shoulder; I12.0 Hypertensive chronic kidney disease with stage 5 chronic kidney disease or end stage renal disease; E11.22 Type 2 diabetes mellitus with diabetic chronic kidney disease; N18.6 End stage renal disease; I69.354 Hemiplegia and hemiparesis following cerebral infarction affecting left non-dominant side; G89.29 Other chronic pain; Z99.2 Dependence on renal dialysis; I25.10 Atherosclerotic heart disease of native coronary artery without angina pectoris; E11.40 Type 2 diabetes mellitus with diabetic neuropathy, unspecified; E11.319 Type 2 diabetes mellitus with unspecified diabetic retinopathy without macular edema; M10.9 Gout, unspecified; E78.5 Hyperlipidemia, unspecified; H40.9 Unspecified glaucoma; F41.8 Other specified anxiety disorders; I48.91 Unspecified atrial fibrillation; Z79.4 Long term (current) use of insulin; Z79.01 Long term (current) use of anticoagulants; Z79.891 Long term (current) use of opiate analgesic; Z96.0 Presence of urogenital implants; Z95.5 Presence of coronary angioplasty implant and graft
CPT/HCPCS: 36415; 71045; 80053; 82948; 83690; 84484; 85025; 85610; 85730; 87040; 93005; 99285; A9270; G0378; J1815

== ENCOUNTER 2021-06-21 12:43 | Observation (INO) | payer OTHER, MEDICARE, SELFPAY ==
[2021-06-21] VITALS (23 sets, daily range): BP systolic 102–139; BP diastolic 46–90; PULSE 66–79; RESP 10–19; TEMP 36.6–36.8; O2SAT 97–100; BMI 36.8
--- NOTE | ~2021-06-21 | CT_ITS ---
EXAMINATION: CT brain wo con DATE: 06/21/2021 13:19 INDICATION: Hypertension. Generalized headache. TECHNIQUE: Computed tomography (CT) of the head was performed without intravenous contrast. The dose- length product was 605.33 mGy-cm. Automated exposure control and iterative reconstruction technique w ere employed. COMPARISON: CT dated 03/19/2021 FINDINGS: There are chronic infarctions of the right parietal, frontal, occipital, right basal gangli a and temporal lobes. No midline shift. No ventriculomegaly. There are scattered moderate periventric ular and subcortical white matter changes, most likely related to small vessel ischemic disease (micr oangiopathy). There is intracranial atherosclerosis. Paranasal sinuses and mastoids are pneumatized. No depressed skull fractures. IMPRESSION: 1. No acute intracranial abnormality. 2: Chronic right hemispheric infarctions unchanged. 3: Chronic age-related findings. Reviewed, dictated and finalized at location B.
--- NOTE | ~2021-06-21 | XR_ITS ---
XR chest 1V 06/21/2021 13:21 Indication: Shortness of breath Procedure: AP portable chest Comparison: Comparison to multiple prior studies sequentially, with oldest reviewed study dated 07/23. Findings: Borderline heart size. No focal air space disease, pulmonary edema, pleural effusion or jasmeet pected pneumothorax. Mildly elevated right diaphragm. Impression: 1: No acute cardiopulmonary disease. Reviewed, dictated and finalized at location B. Impression: 1: No acute cardiopulmonary disease.
--- NOTE | 2021-06-21 12:44 | ECG_ITS ---
Measurements Intervals [place] Rate: 69 P: 71 TN: 190 QRS: 263 QRSD: 169 T: 25 QT: 498 QTc: 535 Interpretive Statements SINUS RHYTHM MARKED RIGHT AXIS DEVIATION [QRS AXIS > 100] RIGHT BUNDLE BRANCH BLOCK [120+ ms QRS DURATION, UPRIGHT V1, 40+ ms S IN I/aVL/V4/V5/V6] POOR R-WAVE PROGRESSION, CANNOT RULE OUT OLD ANTERIOR ID COMPARED TO ECG 06/12/2021 15:54:37 NO SIGNIFICANT CHANGES Electronically Signed On 06-21-2021 18:45:57 CDT by Chrissy Mason M.D.
[2021-06-21 13:00] LABS: Basophils Percent Auto 0.3 % (0.2-1.2); Eosinophils Absolute Auto 0.2 K/mm3 (0-0.3); Eosinophils Percent Auto 2.3 % (0-4.4); Hematocrit 28.8 % (37.0-47.0); Hemoglobin 8.3 g/dL (12.0-15.0); Immature Granulocyte Percent A 1.1 % (0-0.5); Lymphocytes Absolute Auto 1.47 K/mm3 (0.9-3.2); Lymphocytes Percent Auto 15.9 % (18.3-44.2); Mean Corpuscular HGB Conc 28.8 g/dl (32-36); Mean Corpuscular Hemoglobin 25.7 pg (26-34); Mean Corpuscular Volume 89.2 fl (80-100); Mean Platelet Volume 8.7 fl (7.4-10.4); Monocytes Absolute Auto 0.7 K/mm3 (0.1-0.6); Monocytes Percent Auto 7.4 % (2.6-8.5); Neutrophils Absolute Auto 6.8 K/mm3 (1.3-6.7); Platelet Count Result 347 k/mm3 (150-375); Red Blood Count 3.23 M/mm3 (4.2-5.4); Red Cell Distribution Width 19.5 % (11.5-14.5); White Blood Count 9.3 K/mm3 (4.5-10.0)
--- NOTE | 2021-06-21 13:04 | ED.CHESTPAIN ---
HPI - Chest Pain General Chief Complaint: Chest Pain Stated Complaint: CP with extreme head pain Time Seen by Provider: 06/21/21 12:59 Source: RN notes reviewed History of Present Illness HPI narrative: Patient presents emergency department from dialysis via EMS for chest pain. Patient states that she is approximately 2 hours into her 2-1/2-hour dialysis treatment she developed left-sided chest pain the pain was described as sharp and stabbing and radiated up into her head. That time EMS was called patient received 3 nitro she states the chest pain is resolved and the head pain is down to a 2 out of 10 she states she does have a history of previous cardiac stents and is followed by Dr. Stahl as well as a history of CVA she denies any fevers or chills shortness of breath abdominal pain nausea vomiting or any other sign Related Data Home Medications Medication Instructions Recorded Confirmed allopurinol 100 mg tablet 100 mg PO DAILY 03/22/21 06/21/21 amiodarone 200 mg tablet 200 mg PO DAILY 03/22/21 06/21/21 apixaban 5 mg tablet 2.5 mg PO BID 03/22/21 06/21/21 atorvastatin 40 mg tablet 40 mg PO DAILY 03/22/21 06/21/21 bimatoprost 0.03 % eye drops 1 drp EACH EYE DAILY 03/22/21 06/21/21 carvedilol 3.125 mg tablet 3.125 mg PO Q12H 03/22/21 06/21/21 gabapentin 100 mg capsule 100 mg PO QHS 03/22/21 06/21/21 insulin glargine 100 unit/mL (3 15 unit SUBCUT QAM 03/22/21 06/21/21 mL) subcutaneous pen insulin lispro 100 unit/mL 6 unit SUBCUT USEASDIRECTD 03/22/21 06/21/21 subcutaneous pen midodrine 10 mg tablet 5 mg PO QTUTHSA 03/22/21 06/21/21 venlafaxine 150 mg 150 mg PO DAILY 03/22/21 06/21/21 capsule,extended release 24 hr Saccharomyces boulardii 250 mg PO BID 06/21/21 06/21/21 albuterol sulfate [Ventolin HFA] 2 puff INHALATION QID PRN 06/21/21 06/21/21 ascorbic acid (vitamin C) 500 mg PO BID 06/21/21 06/21/21 bisacodyl 10 mg RECTAL DAILY PRN 06/21/21 06/21/21 ceftriaxone 1 g IV DAILY 06/21/21 06/21/21 furosemide 20 mg PO MOWEFR@0900 06/21/21 06/21/21 levothyroxine 25 mcg PO DAILY 06/21/21 06/21/21 linezolid 600 mg PO Q12H 06/21/21 06/21/21 losartan 25 mg PO DAILY 06/21/21 06/21/21 fbgydviqdveu-pis-cztb-FA-vit K 1 tablet PO DAILY 06/21/21 06/21/21 [Adults Multivitamin] oxycodone 5 mg PO Q4H PRN 06/21/21 06/21/21 polyethylene glycol 3350 [GlycoLax] 17 g PO DAILY 06/21/21 06/21/21 sennosides-docusate sodium [Senna 1 tab-cap PO HS 06/21/21 06/21/21 with Docusate Sodium] Allergies Allergy/AdvReac Type Severity Reaction Status Date / Time No Known Allergies Allergy Verified 06/12/21 15:51 Review of Systems Review of Systems: Gen.: Denies fevers or chills Eyes: Denies eye pain or visual change ENT: Denies congestion Respiratory: Denies shortness of breath or cough CV: Reports chest pain GI: Denies abdominal pain nausea, emesis or diarrhea reports chronic renal failure dialysis Musculoskeletal: Denies back pain or muscle pain Neuro: See HPI Skin: Denies rash Except as documented, all other systems reviewed and negative [facility] Past Medical History Medical History (Updated 06/21/21 @ 19:42 by Giovani Villanueva DO) Anxiety and depression Atrial fibrillation Chronic indwelling Wilson catheter Coronary artery disease CVA (cerebral vascular accident) 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 Complicated by post dialysis hypotension. Hemodialysis Friday Functional quadriplegia Due to CVA Glaucoma Gout Hyperlipidemia Insulin dependent diabetes mellitus Surgical History Surgical History AV fistula Left upper arm with recent dilation. H/O: hysterectomy History of cholecystectomy History of heart artery stent Family History Family History Ot
[2021-06-21 13:12] LABS: Alanine Aminotransferase 14 U/L (4-35); Albumin Level 2.3 g/dL (3.5-5.1); Alkaline Phosphatase 182 U/L (38-126); Anion Gap 0 mmol/L (8-16); Aspartate Amino Transferase 37 U/L (14-36); Bilirubin,Total 0.3 mg/dL (0.2-1.3); Blood Urea Nitrogen 33 mg/dL (7-17); Calcium 7.2 mg/dL (8.4-10.2); Carbon Dioxide 36 mmol/L (22-30); Chloride 95 mmol/L (98-107); Estimated CRCL calculation 26 ml/min; Estimated Glomerular Filt Rate 18; Glucose 56 mg/dL (65-110); Lipase 17 U/L (23-300); Potassium 4.1 mmol/L (3.4-5.0); Sodium 131 mmol/L (137-145)
[2021-06-21 13:15] LABS: INR 1.5; Prothrombin Time 17.9 Seconds (11.1-14.7)
[2021-06-21 13:20] LABS: Hypochromasia 1+ (NORMAL); Platelet Estimate Adequate (Adequate)
[2021-06-21 13:21] LABS: Helmet Cells 1+ (NORMAL); Ovalocytes 1+ (NORMAL); Target Cells 1+ (NORMAL)
--- NOTE | 2021-06-21 13:21 | PC.NURSE ---
Pt glucose in CMP noted to be 56, ERP is aware and wants pt to eat. pt has been called and he was at [facility] and will redirect to this faciliyt.
[2021-06-21 13:22] LABS: Troponin I 0.022 ng/mL (0.000-0.034)
--- NOTE | 2021-06-21 13:35 | PC.NURSE ---
PT FSBS noted to be 56. pt is alert and oriented x 3 and answering questions appropriately. States she would like juice and something bland. Pt states she has had a lot of issues with her glucose and maintaining it. States she ate a full breakfast this am.
[2021-06-21 13:36] LABS: Glucose Point of Care 56 mg/dl (65-105)
--- NOTE | 2021-06-21 13:47 | PC.NURSE ---
Pt ate sauce and juice.
--- NOTE | 2021-06-21 13:52 | PC.NURSE ---
Pt reports 2/10 head pain and nausea. states to this RN he is concenred a she noticed some eye drooping and change in speech while visiting pt yesterday. CORKY christopher made aware
[2021-06-21 14:22] LABS: Glucose Point of Care 72 mg/dl (65-105)
--- NOTE | 2021-06-21 14:25 | PC.NURSE ---
attempted to call facility x 2 to obtain medication list. Phone rang with no roll over to voicemail.
[2021-06-21 15:00] LABS: SARS-CoV-2 RNA PCR Negative
--- NOTE | 2021-06-21 16:20 | PM.IMHP ---
H&P: HPI History of Present Illness Date/Time: PATIENT ADMITTED UNDER OBSERvATION STATUS 06/21/21 16:20 Chief Complaint: Chest pain Narrative: 66yo female with hx of ESRD on HD, DM, CAD, pAFib and CVA brought to the ED from the dialysis unit for chest pain. Patient is alert and mostly oriented but has difficulty with providing coherent history. She provides the following information. She has had hemodialysis since October 2020. She has dialysis Friday, and Saturdays. End-stage renal disease related to diabetes. She was hospitalized here on June 12 for left-sided chest pain that occurred at dialysis. Blood pressure was low but this is chronic and this is why she takes midodrine on dialysis days. EKG showed no significant changes from a March EKG. Troponins were negative x3. She mentioned that she had a chemical stress test 3 months ago that was normal. [place] the chest pain related to hypotension. Recommended that she hold the Bumex on dialysis days and this instruction was provided in the discharge instructions. She did see the plastic surgeon for multiple wounds as well as severe flexion contracture of the left hand with fingers imbedded in her palm. She has not followed up with the plastic surgeon here yet. She was discharged on June 13. Since discharge, patient states that she has not had any low blood pressures at dialysis. It normally runs 130/40. She has not had any chest pain, shortness of breath or dizziness while undergoing dialysis up until today. Approximately 2 hours into her dialysis treatment today, patient developed chest pain. It was left-sided overlying breast area. It was heaviness described as 10/10. No jaw or neck pain. She had left arm pain. She had headache but thinks this started after she received the nitroglycerin. There is a notation that the blood pressure was 134/70 and also that she received no relief of the chest pain with nitro. Patient however states that her chest pain improved to a 2/10. She denied nausea or vomiting but later said that she was nauseous in the ED. No shortness of breath or diaphoresis. No fever or chills. She does mention that the chest pain was pleuritic and palpable. She has a PICC line in place in the right upper arm. She has a chronic indwelling Wilson catheter for unclear reasons. She does make urine but less so on dialysis days. She has frequent hematuria. No dysuria. She has chronic upper and lower back pain and sees Orthopedics at [facility] for this. No abdominal pain. She is recently diagnosed with the UTI and is on IV and oral antibiotics. She also complains of tremors over the past 3 weeks. She does not walk. She requires a Celso lift to a chair. She had been having over the past 2-3 weeks morning glucose of 40-50 and does feel symptomatic from from this. No changes in her medications for diabetes. Because the chest pain, EMS was contacted. According to EMS notes, chest pain was described at that time is nonradiating and in the center of her chest at 7/10 with nausea. Dialysis stated only took off 0.4 L of fluid. Chest pain dropped to 1/10. Four baby aspirin given. In route, patient experienced 10/10 head pain and her blood pressure climbed to 205/175. No treatment was given for the blood pressure. In the ED, blood pressure was 139/61. Hemoglobin was 8.3 but this is the patient's baseline. INR 1.5 but she is on Eliquis chronically. Glucose was 56. Lipase was normal. COVID swab was negative. Troponin negative x1. EKG shows normal sinus rhythm, right axis deviation and right bundle branch block. No significant change from EKG from March. Chest x-ray was clear. CT of the brain shows no acute intracranial abnormalities but does show the chronic infarcts. Patient was given acetaminophen IV and admitted for further care. Review of Systems Review of Systems: All systems reviewed & are unremarkable except as noted in HPI and below PMFSH
[2021-06-21 17:05] LABS: Troponin I 0.018 ng/mL (0.000-0.034)
--- NOTE | 2021-06-21 17:22 | ADMGEN ---
This patient, Chantel Suarez, was admitted to IMU Room 200-01 at 1640 on 06/21/2021. Patient/family oriented to hospital policies and general routines including ID bracelet, bed and alarms, visiting hours, pain management, procedures, bathroom and other care routines, personal items, smoking policy, room service/diet, and visiting hours. Information on how to activate the Rapid Response Team has been discussed. Patient/Family are encouraged to report perceived risks to care and to ask questions if they do not understand what they are told or what they should do.
[2021-06-21 20:40] LABS: Glucose Point of Care 125 mg/dl (65-105)
[2021-06-21] MEDS: carvediloL 3.125 MG TABLET PO (21:44)
[2021-06-21] MEDS: GABAPENTIN 100 MG CAPSULE PO (21:44)
[2021-06-21] MEDS: SENNA/DOCUSATE SODIUM TABLET 1 TAB PO (21:44)
[2021-06-21] MEDS: APIXABAN 2.5 MG TABLET PO (21:45)
[2021-06-21] MEDS: SODIUM CHLORIDE 0.9% IV 100 ML 20 ML (22:16)
[2021-06-21] MEDS: MORPHINE SULFATE (*CRX) 2 MG/ML INJ 1 MG IV PUSH (22:48)
[2021-06-22] VITALS (9 sets, daily range): BP systolic 120–139; BP diastolic 40–50; PULSE 69–75; RESP 16–22; TEMP 36.2–36.8; O2SAT 97–100
--- NOTE | 2021-06-22 | ECHO_ITS ---
Patient Info Name: Chantel Suarez Age: 66 years : 1955 Gender: Female Ht: 66 in Wt: 275 lbs BSA: 2.48 m2 HR: 72 bpm BP: 120 / 40 mmHg Heart Rhythm: Sinus Rhythm Technical Quality: Fair Exam Date: 06/22/2021 9:28 AM Exam Location: [facility] Patient Status: Outpatient Admit Date: 06/21/2021 Staff Ordering Physician: Ruddy Broderick MD [facility] Case Manager: Jeannette Gonzalez RDCS Attending Provider: Gwendolyn Bernstein MD Exam Type: CA echo doppler color flow Study Info Indications - chest psin Complete two-dimensional, color flow and Doppler transthoracic echocardiogram is performed. Summary 1. Complete two-dimensional, color flow and Doppler transthoracic echocardiogram is performed. 2. Left ventricular systolic function is normal, estimated at 55-60%. 3. The left ventricular diastolic function is grade II diastolic dysfunction. 4. Left atrial chamber dimension is severely enlarged. 5. There is mild aortic valve sclerosis. 6. There is trace mitral valve regurgitation. 7. The inferior segment of the left ventricle is hypodynamic. Left Ventricle Left ventricular chamber dimension is mildly enlarged. Left ventricular systolic function is normal, estimated at 55-60%. There is moderate concentric increased left ventricular wall thickness. The left ventricular diastolic function is grade II diastolic dysfunction. Right Ventricle Right ventricular chamber dimension is normal. Left Atria Left atrial chamber dimension is severely enlarged. Right Atria Right atrial chamber dimension is mildly enlarged. Aortic Valve The aortic valve is trileaflet. There is mild aortic valve sclerosis. Pulmonic Valve The pulmonic valve is not well visualized. Mitral Valve The mitral valve has normal leaflets. There is trace mitral valve regurgitation. The mitral valve annulus is mildly calcified. Tricuspid Valve The tricuspid valve leaflets are normal. Pericardium/Pleural The pericardium appears normal. Aorta The aortic root size at the sinus of Valsalva is normal. Left Ventricular Outflow Tract Name Value Normal LVOT 2D LVOT Diameter 2.0 cm LVOT Doppler LVOT Peak Gradient 4 mmHg LVOT Mean Gradient 2 mmHg LVOT VTI 21 cm LVOT VTI/AV VTI Ratio 0.5 LVOT Stroke Volume 68 ml LVOT CO 4.5 l/min LVOT CI 1.8 l/min/m2 Pulmonic Valve Name Value Normal RVOT Doppler RVOT Peak Gradient 2 mmHg PV Doppler PV Peak Gradient 6 mmHg Mitral Valve Nam
[2021-06-22 05:19] LABS: Basophils Percent Auto 0.2 % (0.2-1.2); Eosinophils Absolute Auto 0.2 K/mm3 (0-0.3); Hematocrit 28.4 % (37.0-47.0); Hemoglobin 8.2 g/dL (12.0-15.0); Lymphocytes Absolute Auto 1.66 K/mm3 (0.9-3.2); Lymphocytes Percent Auto 17.1 % (18.3-44.2); Mean Corpuscular HGB Conc 28.9 g/dl (32-36); Mean Corpuscular Hemoglobin 26.6 pg (26-34); Mean Corpuscular Volume 92.2 fl (80-100); Monocytes Absolute Auto 0.7 K/mm3 (0.1-0.6); Monocytes Percent Auto 6.7 % (2.6-8.5); Neutrophils Absolute Auto 7.1 K/mm3 (1.3-6.7); Platelet Count Result 328 k/mm3 (150-375); Red Blood Count 3.08 M/mm3 (4.2-5.4); Red Cell Distribution Width 20.8 % (11.5-14.5); White Blood Count 9.7 K/mm3 (4.5-10.0)
[2021-06-22 05:29] LABS: INR 1.6; Prothrombin Time 18.7 Seconds (11.1-14.7)
[2021-06-22 05:35] LABS: Alanine Aminotransferase 14 U/L (4-35); Albumin Level 2.1 g/dL (3.5-5.1); Alkaline Phosphatase 170 U/L (38-126); Anion Gap 4 mmol/L (8-16); Aspartate Amino Transferase 34 U/L (14-36); Bilirubin,Total 0.2 mg/dL (0.2-1.3); Blood Urea Nitrogen 40 mg/dL (7-17); Calcium 7.3 mg/dL (8.4-10.2); Carbon Dioxide 35 mmol/L (22-30); Chloride 92 mmol/L (98-107); Estimated CRCL calculation 16 ml/min; Estimated Glomerular Filt Rate 14; Glucose 110 mg/dL (65-110); Magnesium 2.2 mg/dL (1.6-2.3); Phosphorus 3.3 mg/dL (2.5-4.5); Potassium 4.4 mmol/L (3.4-5.0); Sodium 131 mmol/L (137-145)
[2021-06-22 05:58] LABS: Platelet Estimate Adequate (Adequate)
[2021-06-22 05:59] LABS: Anisocytosis 1+ (NORMAL); Hypochromasia 1+ (NORMAL)
[2021-06-22 06:18] LABS: Hemoglobin A1C 4.8 % (<5.7)
[2021-06-22] MEDS: LEVOTHYROXINE SODIUM 25 MCG TABLET PO (07:03)
[2021-06-22] MEDS: VENLAFAXINE HCL XR 75 MG CAP.ER.24H 150 MG PO (08:56)
[2021-06-22 08:57] LABS: Glucose Point of Care 120 mg/dl (65-105)
[2021-06-22] MEDS: allopurinoL 100 MG TABLET PO (09:00)
[2021-06-22] MEDS: AMIODARONE HCL 200 MG TABLET PO (09:01)
[2021-06-22] MEDS: ATORVASTATIN 40 MG TABLET PO (09:02)
[2021-06-22] MEDS: carvediloL 3.125 MG TABLET PO (09:02)
[2021-06-22] MEDS: APIXABAN 2.5 MG TABLET PO (09:02)
[2021-06-22] MEDS: ASCORBIC ACID 500 MG TABLET PO (09:02)
[2021-06-22] MEDS: FUROSEMIDE 20 MG TABLET PO (09:03)
[2021-06-22] MEDS: LINEZOLID 600 MG TABLET PO (09:04)
[2021-06-22] MEDS: MULTIVITAMINS /C LUTEIN (CENTRUM SILVER) TABLET *BKC 1 TAB PO (09:04)
[2021-06-22] MEDS: LOSARTAN POTASSIUM 25 MG TABLET PO (09:04)
[2021-06-22] MEDS: LATANOPROST 0.005% OP SOLN 2.5 ML BTL 1 DROP EACH EYE (09:04)
[2021-06-22] MEDS: SACCHAROMYCES BOULARDII 250 MG CAPSULE PO (09:05)
[2021-06-22] MEDS: INSULIN GLARGINE (*BKC) 100 UNITS/ML 12 UNITS SUB-Q (09:12)
[2021-06-22] MEDS: ASPIRIN 81 MG CHEWABLE TABLET PO (09:12)
--- NOTE | 2021-06-22 09:16 | PM.CNNEP ---
Assessment and Plan Additional Plan 1. The patient has end-stage renal disease. This is due to diabetes. She normally has treatments on Tuesdays and Saturdays. She had most of her dialysis yesterday. Her electrolytes are okay. Her lungs are clear. Her chest x-ray is okay. So I think we can wait till tomorrow to do her next treatment. She will get this here or if she is discharged she will get at her outpatient dialysis unit. 2. The patient had chest pain. Etiology of this is unclear. EKG is unchanged. She recently had a cardiac catheterization. Cardiology has been consulted and we can go from there. 3. The patient has anemia. Hemoglobin is 8.2. Will give Epogen with dialysis tomorrow if she is still here. 4. The patient has renal osteodystrophy. Will check a phosphorus level of still here tomorrow. 5. The patient has paroxysmal atrial fibrillation. Currently she is in sinus rhythm her EKG. She continues on Eliquis. 6. The patient has a chronic indwelling Wilson. It is unclear why this is the case. This was changed out. She does have a UTI is finishing antibiotics. 7. The patient has chronic hypotension. She is on midodrine for this. I think it would be okay to stop her losartan. Discussed with Dr. Broderick History of Present Illness Reason for Consult Consult date: 06/22/21 Chief Complaint Chief complaint: Chest Pain, Headache, Chronic Renal Failure History of Present Illness Narrative: Chantel is a very pleasant 66-year-old lady who has multiple medical problems including diabetes, end-stage renal disease-secondary to the diabetes, hyperlipidemia, coronary disease status post cardiac catheterization about a year ago, stroke affecting her left side, hypotension, depression, diabetic retinopathy, glaucoma, gout. The patient was in the hospital a few days ago with chest pain. This was related to hypotension on dialysis. Evaluation revealed noncardiac cause. She was placed on midodrine and she tolerated dialysis better. She was discharged and since then her dialysis has been going well. She says she gains only about a half a L between each dialysis. She does make some urine which helps as well. She went to dialysis yesterday and still only had a 1/2 L on so her dialysis went pretty well until about 2hours into the 2-1/2 hours session. She developed chest pain. He says the pain lasted about an hour a went away with nitro. Then she got a severe headache. Because of the headache she was brought [facility] instead of going to [facility] which is where she usually goes. Has not had any more chest pain since then. She had no associated shortness of breath palpitations fainting spells. Her blood pressure was okay on the treatment and has been okay since then. The patient gets dialysis at [facility] and Dr. Ingram is her doctor. Review of Systems Constitutional: Constitutional: Reports no additional constitutional complaints Eyes: Eyes: Reports no additional eye complaints ENT: Reports system reviewed and no additional complaints, except as documented Cardiovascular: Cardiovascular: Reports no additional cardiovascular complaints Respiratory: Respiratory: Reports no additional respiratory complaints Gastrointestinal: Gastrointestinal: Reports no additional gastrointestinal complaints Genitourinary: Genitourinary: Reports no additional female genitourinary complaints Musculoskeletal: Musculoskeletal: Reports no additional musculoskeletal complaints Integumentary/Breasts: Skin/Breast: Reports system reviewed and no additional complaints, except as docu Neurologic: Reports system reviewed and no additional complaints, except as documented Psychiatric: Psychiatric: Reports no additional psychiatric complaints Endocrine: Endocrine: Reports no additional endocrine complaints PMFSH Past Medical History Medical History Anxiety and depression Atrial fib
[2021-06-22] MEDS: polyethylene glycoL 3350 17 GM POWD.PACK PO (09:17)
--- NOTE | 2021-06-22 11:43 | PM.CNCAR ---
Assessment and Plan Additional Plan 66-year-old woman known to have coronary disease PCI of couple of her coronary arteries elsewhere within the last year or so. She apparently follows with reinforcing steel worker over in [place] and [facility]. She came here with some transient chest pain that occurred after being dialyzed or I should say while being dialyzed yesterday. She has had no evidence of acute coronary event by ECG or troponin criteria. She is feeling well at this time. I do not believe I would recommend ongoing hospitalization here at [facility]. She should contact her reinforcing steel worker to make sure they are aware this event occurred. She did apparently has had close follow-up with their practice following revascularization last year including relatively recent stress testing apparently with favorable results. I believe she is stable for discharge from our hospital at this time. Call me if you have any additional cardiac questions or concerns Steve Schilling MD [facility] History of Present Illness History of Present Illness Consult date/time: 06/22/21 11:43 Consult reason: chest pain Reason For Visit: Chest Pain, Headache, Chronic Renal Failure Narrative: This is a very pleasant but unfortunate 66-year-old lady with coronary artery disease, end-stage renal disease due to diabetes who I am seeing at the request of the hospitalist today because of some chest pain that occurred yesterday. She is unknown to me prior to this occurrence. According to the patient she was found both the have significant renal failure as well as coronary artery disease last year and receives her care elsewhere, not here at [facility]. She states that she was found to have significant coronary disease and underwent a percutaneous intervention involving stenting of at least 2 of her coronary arteries over in [place]. She sees physicians who are members of [facility] and vascular. I do not have any of those records at the time of this dictation. She says that she can not remember what symptoms she was having at that time that led to the cardiac evaluation. Her in follow-up she states that her physician in that practice thinks she is doing well and there have not been any cardiac concerns since then. Also last year she was found to have severe renal disease and became a dialysis patient she is dialyzed on Tuesdays and Saturdays and once again does not have a press operator printing here at [facility]. Apparently while she was being dialyzed yesterday she had some chest pain she describes this as a sharp rather severe left precordial pain that was improved with nitroglycerin that altogether lasted about 15 or 20 minutes. Was not associated with shortness of breath diaphoresis or nausea. There was no radiation of the pain to any other location. The patient's ECG shows a sinus mechanism with right bundle branch block and a rightward axis and is unchanged from prior EKGs in this hospital's record. Troponin levels of course have been sampled and they are unremarkable. She is having no other complaints today and feels well. She denies any shortness of breath orthopnea or PND. She does have some chronic lower extremity edema which has not worsened recently. She does not have any history of palpitations or syncope. Review of Systems Constitutional: Constitutional: Reports no additional constitutional complaints Eyes: Eyes: Reports no additional eye complaints ENT: Reports system reviewed and no additional complaints, except as documented Cardiovascular: Cardiovascular: Reports as per HPI Respiratory: Respiratory: Reports no additional respiratory complaints Gastrointestinal: Gastrointestinal: Reports no additional gastrointestinal complaints Musculoskeletal: Musculoskeletal: Reports arthralgias Integumentary/Breasts: Skin/Breast: Reports system reviewed and no additional complaints, except as docu Neurologic: Reports system reviewed and no
--- NOTE | 2021-06-22 12:13 | PM.DS ---
DS: Admitting Diagnosis Discharge Date 06/22/21 Admitting Diagnosis Chest pain DS: Discharge Diagnosis Discharge Diagnosis (1) Chest pain at rest: Code(s): R07.9 - Chest pain, unspecified Status: Acute Assessment and Plan: Patient returned to the emergency room with complaints of chest pain. Last admission, it was felt related to hypotension. EKG showing no acute changes. Chest x-ray was clear. Troponin was negative x3. Echocardiogram pending. We obtained old records from [facility]; Lexiscan stress test in Apr 2021 was negative for reversible ischemia. Patient does not take aspirin for unclear reasons so aspirin started. We continued atorvastatin and Coreg. Cardiology consulted and appreciate their input. (2) Acute UTI: Code(s): N39.0 - Urinary tract infection, site not specified Status: Acute Assessment and Plan: Patient was on oral and IV antibiotics for UTI. Probably complicated UTI related to her chronic indwelling Wilson catheter. Spoke with her who verified this. We clarified the abx and these were resumed. The Wilson catheter was changed out. (3) ESRD on dialysis: Code(s): N18.6 - End stage renal disease; Z99.2 - Dependence on renal dialysis Status: Acute Assessment and Plan: Patient with end-stage renal disease since last year. [place] kidney failure related to diabetes. She only had 0.4 L removed at HD but building equipment operator stated this is normal for this patient since she makes good volume of urine. CXR was clear and she is on room air. She does have significant pedal edema but this is related to her paralysis. Seen by building equipment operator and appreciate their input. Metal Drawer stopped the Cozaar. (4) Coronary artery disease: Code(s): I25.10 - Atherosclerotic heart disease of [place] coronary artery without angina pectoris Status: Inactive Assessment and Plan: As above. Patient has a history of coronary disease with stent placement. We resumed her statin and betablocker. ASA added. (5) Insulin dependent diabetes mellitus: Status: Acute Assessment and Plan: A1c 4.8%. TSH normal. She was monitored closely with AccuChecks covering with sliding scale protocol. Hypoglycemia protocol was available as needed. We resumed her Lantus but decrease the dose and stopped her mealtime insulin. This was done since she appears to be too tightly controlled with the low-nml A1c and given her complaints of hypoglycemia. Continue to monitor closely at the facility (6) Decubitus ulcer: Code(s): L89.90 - Pressure ulcer of unspecified site, unspecified stage Status: Acute Assessment and Plan: Patient with multiple skin decubitus ulcers present on admission. Some are difficult to stage due to the black eschar/necrosis. Wound care consulted and we continued wound care.. (7) Contracture, left hand: Code(s): M24.542 - Contracture, left hand Status: Acute Assessment and Plan: Patient with chronic left hand contracture. Patient to follow-up with Dr. Gould after discharge as previously arranged. (8) Chronic indwelling Wilson catheter: Code(s): Z97.8 - Presence of other specified devices Status: Inactive Assessment and Plan: Unclear why she requires a chronic indwelling Wilson catheter. We changed out her catheter. DS: Summary Hospital Course Reason for hospitalization: 66yo female with hx of ESRD on HD, DM, CAD, pAFib and CVA brought to the ED from the dialysis unit for chest pain. Please see H&P for details. Hospital Course: Please see above for details of hospital course. Status at Discharge Cognitive/behavioral status at discharge: Stable Time Spent with Patient Time attestation: Total time spent providing and/or coordinating discharge services: 35 minutes Time spent: Greater than 30 minutes Exam Narrative: AF 97.2 138/50 71 22 100% ra Gen
[2021-06-22] MEDS: SILVERGEL (ELTA) 45 ML 1 APPLIC TOPICAL (12:29)
[2021-06-22 13:04] LABS: Glucose Point of Care 122 mg/dl (65-105)
[2021-06-22] MEDS: oxyCODONE HCL (*CRX) 5 MG TAB IR PO (13:38)
--- NOTE | 2021-06-22 15:47 | PC.NURSE ---
1400-report called to ALEXANDRE Ramachandran from [facility].
--- NOTE | 2021-06-22 16:11 | PC.NURSE ---
1611-pt transferred to [facility] with EMS. Pt belongings with pt.
--- NOTE | 2021-06-29 10:22 | PC.NURSE ---
Echo report shown to Dr. Broderick. Blood cx negative. Dr. Broderick aware.
== END 2021-06-22 16:10 ==
LOC: ANHED 12:59 → ANHIMU 17:17
PROVIDERS: Admitting Provider Family Medicine; Emergency Provider Emergency Medicine; PCP Internal Medicine; Visit Provider Internal Medicine
DX: R07.9 Chest pain, unspecified (principal); N39.0 Urinary tract infection, site not specified; L89.90 Pressure ulcer of unspecified site, unspecified stage; M24.542 Contracture, left hand; E11.649 Type 2 diabetes mellitus with hypoglycemia without coma; D64.9 Anemia, unspecified; N25.0 Renal osteodystrophy; I48.0 Paroxysmal atrial fibrillation; I95.9 Hypotension, unspecified; H57.89 Other specified disorders of eye and adnexa; E11.22 Type 2 diabetes mellitus with diabetic chronic kidney disease; N18.6 End stage renal disease; Z99.2 Dependence on renal dialysis; I25.10 Atherosclerotic heart disease of native coronary artery without angina pectoris; I48.91 Unspecified atrial fibrillation; F41.8 Other specified anxiety disorders; E11.40 Type 2 diabetes mellitus with diabetic neuropathy, unspecified; E11.319 Type 2 diabetes mellitus with unspecified diabetic retinopathy without macular edema; E78.5 Hyperlipidemia, unspecified; M10.9 Gout, unspecified; H40.9 Unspecified glaucoma; I69.364 Other paralytic syndrome following cerebral infarction affecting left non-dominant side; Z20.822 Contact with and (suspected) exposure to COVID-19; Z95.5 Presence of coronary angioplasty implant and graft; Z79.01 Long term (current) use of anticoagulants; Z79.4 Long term (current) use of insulin; Z79.51 Long term (current) use of inhaled steroids; Z79.891 Long term (current) use of opiate analgesic; Z96.0 Presence of urogenital implants
CPT/HCPCS: 36415; 70450; 71045; 80053; 82948; 83036; 83690; 83735; 84100; 84443; 84484; 85025; 85610; 85730; 87040; 93005; 93306; 96365; 96375; 99285; A9270; C9803; G0378; J0131; J0696; J1815; J2270; U0003; U0005

== ENCOUNTER 2021-06-27 10:58 | Outpatient (RCR) | payer OTHER, MEDICARE, SELFPAY ==
[2021-06-27 11:46] VITALS: BMI 40.5
--- NOTE | 2021-06-27 12:20 | WPDWOUNDNOTE ---
Wound Care Note Date/Time: 06/27/21 12:20 History: Alert 66 YO obese diabetic female with history of strokes, last in 2020 resulting in left hemiplegia. She has a clasped hand that doesn't permit adequate hygiene. She is in the wound clinic today for my evaluation of this hand. A recommended care for this hand from the wound ostomy nurses relayed to the senior care did not work out. The patient's hand is painful and they were not able to carry out the order. The patient has no cellulitis today but the fingers are clasped spastically into the palm. They are roughly parallel to each other the ring finger being the most problematic. She did not permit examination today to any detailed degree except the see that she is not inflamed. There us no drainage and no foul odor. She has tense flexors in the forearm. This left upper extremity is spastic at the wrist elbow and shoulder. She is not ambulatory. She has multiple health issues and is on renal dialysis using a fistula in the left arm. She will require surgical release of flexor tendons in the forearm and possibly the hand to allow access for appropriate hygiene in skin care. We will arrange that. I explained to her today that this would be done under general anesthesia would be an outpatient procedure that would require likely more than 1 incision. stitches. A splint. And time for healing. Possible complications were suggested as infection, hematoma, injury to a sensory nerve, bleeding. She is willing to have this procedure done for her. 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 Requires surgical release under general anesthesia. Will schedule through nursing facility.
== END 2021-09-10 08:28 | disposition home or self-care (01) ==
LOC: ANHWOC 10:58
PROVIDERS: PCP Internal Medicine; Visit Provider Plastic Surgery
DX: L89.890 Pressure ulcer of other site, unstageable (principal); M24.542 Contracture, left hand
CPT/HCPCS: 99212; G0463

== ENCOUNTER 2021-10-01 14:07 | Emergency (ER) | payer OTHER, MEDICARE, SELFPAY ==
[2021-10-01] VITALS (17 sets, daily range): BP systolic 135–154; BP diastolic 50–59; PULSE 77–81; RESP 16–18; O2SAT 90–100
--- NOTE | ~2021-10-01 | CT_ITS ---
EXAMINATION: CT pelvis wo con DATE: 10/01/2021 15:14 INDICATION: Pubic symphysis diastasis TECHNIQUE: Computed tomography (CT) of the pelvis was performed without intravenous contrast. Automat ed exposure control and iterative reconstruction technique were employed. Exam dose: 837.46 mGy-cm t otal exam DLP. COMPARISON: None FINDINGS: There is 1.8 cm diastasis at the pubic symphysis. There is diffuse osteopenia. Normal alignment at the sacroiliac joints. No pelvic fracture is noted. No fracture or dislocation at either hip is detected. There is edema of the subcutaneous tissues of the pelvic wall and hips. There is extensive calcificat ion of the iliac and femoral arteries, superior mesenteric artery. There is a prominent of fecal material throughout the rectum and colon. No bowel obstruction is noted . There is a Wilson catheter in the urinary bladder. Diffuse bladder wall thickening may be due to under distention or cystitis. IMPRESSION: 1.8 cm diastasis at the pubic symphysis; no associated pelvic ring fracture sacroiliac d iastasis is detected Pelvic wall edema Reviewed, dictated and finalized at [facility]. Reviewed, dictated and finalized at location [facility]. IMPRESSION: 1.8 cm diastasis at the pubic symphysis; no associated pelvic ring fracture sacroiliac diastasis is detected Pelvic wall edema
--- NOTE | ~2021-10-01 | XR_ITS ---
XR knee LT 2V DATE: 10/01/2021 17:00 INDICATION: Pain TECHNIQUE: AP and crosstable lateral views COMPARISON: None FINDINGS: There is a transverse metaphyseal fracture of the distal femur with approximately 25 degree s apex medial angulation. Cannot exclude fracture of either the lateral or medial tibial plateau and fibular neck. CT examinati on is recommended. No dislocation is noted. Prominent osteopenia. IMPRESSION: Transverse fracture of distal femoral metaphysis Cannot exclude fracture of proximal tibia or fibula Recommend CT of the left knee Prominent osteopenia Reviewed, dictated and finalized at location [facility].
--- NOTE | ~2021-10-01 | XR_ITS ---
XR hip LT min 2V DATE: 10/01/2021 14:45 INDICATION: Acute hip pain TECHNIQUE: AP and crosstable lateral views of left hip COMPARISON: 02/05/2021 pelvis and bilateral hips FINDINGS: Since 02/05/2021 there is approximately 2.1 cm diastases at the pubic symphysis. CT pelvis i s suggested as this may be associated with pelvic ring fractures. There is osteopenia. No fracture or dislocation is evident the left hip. The crosstable lateral view is suboptimal for steven luation of the femoral head and neck. CT examination would be helpful. IMPRESSION: Limited examination revealing prominent diastases of the pubic symphysis, new findings si nce 02/05/2021. CT pelvis is recommended for more definitive evaluation Reviewed, dictated and finalized at location [facility]. IMPRESSION: Limited examination revealing prominent diastases of the pubic symp hysis, new findings since 02/05/2021. CT pelvis is recommended for more definiti ve evaluation
--- NOTE | 2021-10-01 14:32 | ED.EXTPRO ---
HPI - Extremity Problem General Chief complaint: Extremity Problem,Nontraumatic <Katie Stuart PA-C - Last Filed: 10/01/21 20:50> Stated complaint: chronic hip pain <Katie Stuart PA-C - Last Filed: 10/01/21 20:50> Time Seen by Provider: 10/01/21 14:09 <Katie Stuart PA-C - Last Filed: 10/01/21 20:50> History of Present Illness HPI Narrative: Patient is a 66-year female with a history of end-stage renal disease on dialysis, chronic left hip pain, CVA with residual left-sided weakness who lives in a group home here from dialysis for evaluation of acute on chronic left hip pain. Patient states that she has been experiencing intermittent, atraumatic left hip pain for the last 6 months. She was treated at her nursing facility with oxycodone 5 mg, does note that her dosage was decreased to 2.5 mg 5 days ago. She states that the pain increased after decreasing her dose, although she does note the pain feels different in nature. Patient has chronic numbness and tingling in the left lower extremity, has no motor function on that side since her stroke. Denies fevers, chills, chest pain, nausea, vomiting. <Katie Stuart PA-C - Last Filed: 10/01/21 20:50> Related Data Home medications: Home Medications Medication Instructions Recorded Confirmed allopurinol 100 mg tablet 100 mg PO DAILY 03/22/21 06/21/21 amiodarone 200 mg tablet 200 mg PO DAILY 03/22/21 06/21/21 apixaban 5 mg tablet 2.5 mg PO BID 03/22/21 06/21/21 atorvastatin 40 mg tablet 40 mg PO DAILY 03/22/21 06/21/21 bimatoprost 0.03 % eye drops 1 drp EACH EYE DAILY 03/22/21 06/21/21 carvedilol 3.125 mg tablet (Coreg) 3.125 mg PO Q12H 03/22/21 06/21/21 gabapentin 100 mg capsule 100 mg PO QHS 03/22/21 06/21/21 midodrine 10 mg tablet 5 mg PO QTUTHSA 03/22/21 06/21/21 venlafaxine 150 mg 150 mg PO DAILY 03/22/21 06/21/21 capsule,extended release 24 hr (Effexor XR) Saccharomyces boulardii 250 mg (5 250 mg PO BID 06/21/21 06/21/21 billion cell) chewable tablet albuterol sulfate 90 mcg/actuation 2 puff inhalation QID PRN 06/21/21 06/21/21 aerosol inhaler (Ventolin HFA) Shortness Of Breath ascorbic acid (vitamin C) 500 mg 500 mg PO BID 06/21/21 06/21/21 capsule bisacodyl 10 mg rectal suppository 10 mg RECTAL DAILY PRN Constipation 06/21/21 06/21/21 ceftriaxone 1 gram solution for 1 g IV DAILY 06/21/21 06/21/21 injection furosemide 20 mg tablet 20 mg PO MOWEFR@0900 06/21/21 06/21/21 levothyroxine 25 mcg tablet 25 mcg PO DAILY 06/21/21 06/21/21 linezolid 600 mg tablet 600 mg PO Q12H 06/21/21 06/21/21 multivit with minerals-iron 18 1 tablet PO DAILY 06/21/21 06/21/21 mg-folic ac 400 mcg-vit K 25 mcg tablet (Adults Multivitamin) oxycodone 10 mg tablet 5 mg PO Q4H PRN Pain 06/21/21 06/21/21 polyethylene glycol 3350 17 gram 17 g PO DAILY 06/21/21 06/21/21 oral powder packet sennosides 8.6 mg-docusate sodium 1 tab-cap PO HS 06/21/21 06/21/21 50 mg tablet (Senna with Docusate Sodium) <Katie Stuart PA-C - Last Filed: 10/01/21 20:50> Allergies/Adverse reactions: Allergies Allergy/AdvReac Type Severity Reaction Status Date / Time No Known Allergies Allergy Verified 06/12/21 15:51 <Katie Stuart PA-C - Last Filed: 10/01/21 20:50> Review of Systems Review of Systems: Gen: Denies fevers or chills Eyes: Denies eye pain or visual change ENT: Denies congestion Respiratory: Denies shortness of breath or cough CV: Denies chest pain or palpitations GI: Denies abdominal pain nausea, emesis or diarrhea : denies burning, urgency, frequency or hematuria Musculoskeletal: Reports left hip pain. Neuro: Denies numbness, tingling, weakness or focal weakness Skin: Denies rash Except as documented, all other systems reviewed and negative <Katie Stuart PA-C - Last Filed: 10/01/21 20:50> [facility]LY [facility] Past Medical History Medical History: Medical History (Reviewed 06/22/21 @
--- NOTE | 2021-10-01 14:37 | PC.NURSE ---
Patient off unit to Radiology.
--- NOTE | 2021-10-01 15:10 | PC.NURSE ---
Patient off unit to CT.
[2021-10-01] MEDS: oxyCODONE HCL (*CRX) 5 MG TAB IR PO (15:17)
[2021-10-01] MEDS: MORPHINE SULFATE (*CRX) 4 MG/ML INJ IV PUSH (18:27)
[2021-10-01 19:13] LABS: Basophils Percent Auto 0.2 % (0.2-1.2); Eosinophils Absolute Auto 0.1 K/mm3 (0-0.3); Eosinophils Percent Auto 1.2 % (0-4.4); Hematocrit 34.2 % (37.0-47.0); Hemoglobin 10.4 g/dL (12.0-15.0); Immature Granulocyte Absolute 0.11 K/mm3 (0.00-0.031); Immature Granulocyte Percent A 1.2 % (0-0.5); Lymphocytes Absolute Auto 1.06 K/mm3 (0.9-3.2); Lymphocytes Percent Auto 11.3 % (18.3-44.2); Mean Corpuscular HGB Conc 30.4 g/dl (32-36); Mean Corpuscular Hemoglobin 27.8 pg (26-34); Mean Corpuscular Volume 91.4 fl (80-100); Mean Platelet Volume 8.7 fl (7.4-10.4); Monocytes Absolute Auto 0.8 K/mm3 (0.1-0.6); Monocytes Percent Auto 8.8 % (2.6-8.5); Neutrophils Absolute Auto 7.3 K/mm3 (1.3-6.7); Neutrophils Percent Auto 77.3 % (45.5-73.1); Platelet Count Result 287 k/mm3 (150-375); Red Blood Count 3.74 M/mm3 (4.2-5.4); Red Cell Distribution Width 14.9 % (11.5-14.5); White Blood Count 9.4 K/mm3 (4.5-10.0)
[2021-10-01] MEDS: ONDANSETRON INJ 4 MG/2 ML VIAL IV PUSH (19:20)
[2021-10-01 19:22] LABS: Alanine Aminotransferase 14 U/L (6-35); Albumin Level 2.6 g/dL (3.5-5.1); Alkaline Phosphatase 154 U/L (38-126); Anion Gap 2 mmol/L (8-16); Aspartate Amino Transferase 25 U/L (14-36); Bilirubin,Total 0.2 mg/dL (0.2-1.3); Blood Urea Nitrogen 40 mg/dL (7-17); Calcium 7.6 mg/dL (8.4-10.2); Carbon Dioxide 34 mmol/L (22-30); Chloride 93 mmol/L (98-107); Estimated Glomerular Filt Rate 20; Glucose 151 mg/dL (65-110); Potassium 4.3 mmol/L (3.4-5.0); Sodium 129 mmol/L (137-145)
[2021-10-01 19:25] LABS: INR 1.6; Prothrombin Time 18.4 Seconds (11.1-14.7)
[2021-10-01 19:26] LABS: Partial Thromboplastin Time 40.1 SECONDS (22.3-36.8)
--- NOTE | 2021-10-01 19:27 | PC.NURSE ---
Patient report given to ALEXANDRE Monte. All questions answered and care of patient transferred.
--- NOTE | 2021-10-01 20:20 | PC.NURSE ---
[facility] here.
[2021-10-01] MEDS: MORPHINE SULFATE (*CRX) 2 MG/ML INJ IV PUSH (20:24)
== END 2021-10-01 20:30 | disposition short-term general hospital (02) ==
PROVIDERS: Emergency Provider Emergency Medicine; PCP Internal Medicine
DX: S79.192A Other physeal fracture of lower end of left femur, initial encounter for closed fracture (principal); I69.954 Hemiplegia and hemiparesis following unspecified cerebrovascular disease affecting left non-dominant side; E11.22 Type 2 diabetes mellitus with diabetic chronic kidney disease; N18.6 End stage renal disease; I48.91 Unspecified atrial fibrillation; I25.10 Atherosclerotic heart disease of native coronary artery without angina pectoris; E11.40 Type 2 diabetes mellitus with diabetic neuropathy, unspecified; E11.319 Type 2 diabetes mellitus with unspecified diabetic retinopathy without macular edema; H40.9 Unspecified glaucoma; M10.9 Gout, unspecified; E78.5 Hyperlipidemia, unspecified; Z99.2 Dependence on renal dialysis; Z95.5 Presence of coronary angioplasty implant and graft; Z79.01 Long term (current) use of anticoagulants; Z79.82 Long term (current) use of aspirin; Z79.4 Long term (current) use of insulin; M85.862 Other specified disorders of bone density and structure, left lower leg; X58.XXXA Exposure to other specified factors, initial encounter
CPT/HCPCS: 36415; 72192; 73502; 73560; 80053; 85025; 85610; 85730; 96374; 96375; 96376; 99285; A9270; J2270; J2405